=== PATIENT | female | born 1955 | race Caucasian/White ===

== ENCOUNTER → 2019-11-09 12:40 | Outpatient (BNVA) | payer MEDICARE, OTHER, SELFPAY | PROVIDERS: Family Provider Family Medicine; PCP Family Medicine; Visit Provider Family Medicine | DX: A60.09 Herpesviral infection of other urogenital tract (principal); E03.9 Hypothyroidism, unspecified; N95.1 Menopausal and female climacteric states; J45.909 Unspecified asthma, uncomplicated; K21.9 Gastro-esophageal reflux disease without esophagitis; R39.9 Unspecified symptoms and signs involving the genitourinary system; M79.671 Pain in right foot | CPT/HCPCS: 81003; 87086 ==

== ENCOUNTER 2019-11-16 13:29 | Outpatient (CLI) | payer MEDICARE, OTHER, SELFPAY ==
--- NOTE | 2019-11-16 13:41 | XR_ITS ---
WS: [id number] XR foot RT min 3V* [id number] REASON FOR EXAM: Right fourth toe pain FINDINGS: Fourth digit shows no definite fractures or dislocation. The metatarsals are normal. A prominent calcaneal spur is noted. The remaining foot appear to be essentially normal. XR/XR foot RT min 3V* [id number] IMPRESSION: Calcaneal spur No definite fractures of the foot particularly the fourth digit.
== END 2019-11-16 13:30 | disposition home or self-care (01) ==
LOC: RAD 13:36
PROVIDERS: Family Provider Family Medicine; PCP Family Medicine; Visit Provider Family Medicine
DX: M79.671 Pain in right foot (principal); N89.8 Other specified noninflammatory disorders of vagina
CPT/HCPCS: 73630; 87070

== ENCOUNTER → 2020-02-28 14:10 | Outpatient (BNVA) | payer MEDICARE, OTHER, SELFPAY | PROVIDERS: Family Provider Family Medicine; PCP Family Medicine; Visit Provider Family Medicine | DX: E03.9 Hypothyroidism, unspecified (principal); R53.83 Other fatigue; R00.2 Palpitations | CPT/HCPCS: 80053; 84443; 85025 ==

== ENCOUNTER 2020-05-04 13:53 | Outpatient (CLI) | payer MEDICARE, OTHER, SELFPAY ==
--- NOTE | 2020-05-04 13:56 | USCV_ITS ---
Magdalena East Age: 64 Gender: F : 1955 Exam Date: 05/04/2020 14:20 Ordering Phys: Jessi Frausto DO Technologist: Delaney Cox Exam Location: [facility] Indication: PATHAK BP: 133 / 67 HR: 106 Rhythm: Sinus Technical Quality: Good MEASUREMENTS (Male / Female) Normal Values 2D ECHO LV Diastolic Diameter PLAX 4.1 cm 4.2 - 5.9 / 3.9 - 5.3 cm LV Systolic Diameter PLAX 2.9 cm IVS Diastolic Thickness 0.6 cm 0.6 - 1.0 / 0.6 - 0.9 cm IVS Systolic Thickness 1.2 cm LVPW Diastolic Thickness 0.8 cm 0.6 - 1.0 / 0.6 - 0.9 cm LVPW Systolic Thickness 1.4 cm LVOT Diameter 2.0 cm LV Ejection Fraction 2D Teich 58.4 % LV Ejection Fraction MOD 2C 76.2 % LV Ejection Fraction 2C AL 75.9 % LA Diameter 3.7 cm Aorta at Sinotubular Diameter 2.3 cm M-MODE LV Diastolic Diameter MM 5.1 cm 4.2 - 5.9 / 3.9 - 5.3 cm LV Systolic Diameter MM 3.7 cm LV Ejection Fraction MM Teich 54.8 % IVS Diastolic Thickness MM 0.6 cm 0.6 - 1.0 / 0.6 - 0.9 cm IVS Systolic Thickness MM 1.0 cm LVPW Diastolic Thickness MM 0.7 cm 0.6 - 1.0 / 0.6 - 0.9 cm LVPW Systolic Thickness MM 1.0 cm Aortic Annulus Diameter 2.5 cm LA Ao Ratio MM 1.5 MV E Point Septal Separation 0.9 cm DOPPLER AV Peak Velocity 196.0 cm/s LVOT Peak Velocity 146.0 cm/s AV Area Cont Eq vti 2.6 cm squared AV Area Cont Eq pk 2.3 cm squared MV Area PHT 2.9 cm squared Mitral E to A Ratio 0.9 MV E' Velocity 10.0 cm/s Mitral E to MV E' Ratio 11.8 Mitral E to LV E' Lateral Ratio 11.6 Mitral E to LV E' Septal Ratio 12.1 TR Peak Velocity 310.7 cm/s TR Peak Gradient 38.6 mmHg TR Mean Velocity 253.3 cm/s TR Mean Gradient 27.4 mmHg TR Velocity Time Integral 93.9 cm TV Peak E Velocity 66.0 cm/s Right Atrial Pressure 3.0 mmHg Pulmonary Artery Systolic Pressu 41.6 mmHg PV Peak Velocity 94.0 cm/s FINDINGS Left Ventricle Normal left ventricular size, systolic function and wall thickness, with no regional wall motion abnormalities. LVEF is 55 to 60%. Normal left ventricular wall thickness. Diastolic dysfunction is noted. Right Ventricle The right ventricle is normal in size and function. Right Atrium The right atrium is normal in size. Left Atrium The left atrium is normal in size. Mitral Valve Structurally normal mitral valve without significant stenosis or prolapse. There is no mitral regurgitation. Aortic Valve Structurally normal aortic valve without significant sclerosis or stenosis. There is no aortic regurgitation. Tricuspid Valve Structurally normal tricuspid valve without significant stenosis or regurgitation. Insufficient TR jet to calculate RVSP. Pulmonic Valve Structurally normal pulmonic valve without significant stenosis. There is no pulmonic regurgitation. Pericardium Normal pericardium without effusion. Aorta Normal ascending aorta dimension. CONCLUSIONS Normal LV function with EF of 55 to 60%. Diastolic dysfunction is noted. Clifton Zuniga MD (Electronically Signed) Final Date: 04 May 2020 17:30 S
--- NOTE | 2020-05-04 15:10 | XR_ITS ---
WS: [id number] SCREENING DEXA SCAN [facility] CLINICAL INFORMATION: post-menopausal COMPARISON: None. FINDINGS: The L1-L4 bone mineral density measures 1.038 g/cm2. This corresponds to a T score score of -1.2 and Z score of 0.1. Left femoral neck bone mineral density measures 0.825 g/cm2. This corresponds to a T score of -1.4 an d Z score of -0.4. Right femoral neck bone mineral density measures 0.838 g/cm2. This corresponds to a T score -1.4of an d Z score of -0.3. Mean femoral neck bone mineral density measures 0.831 g/cm2. This corresponds to a T score of -1.4 an d Z score of -0.4. XR/XR DEXA axial skeleton* [id number] IMPRESSION: Osteopenia Patient's FRAX calculated 10 year probability for major osteoporotic fracture i s 18.3 % and osteoporotic hip fracture is 3.1%.
== END 2020-05-04 13:54 | disposition home or self-care (01) ==
LOC: US 13:54
PROVIDERS: Family Provider Family Medicine; PCP Family Medicine; Visit Provider Family Medicine
DX: Z78.0 Asymptomatic menopausal state (principal); M85.88 Other specified disorders of bone density and structure, other site; R06.00 Dyspnea, unspecified
CPT/HCPCS: 77080; 93306

== ENCOUNTER 2020-05-16 10:59 | Outpatient (CLI) | payer MEDICARE, OTHER, SELFPAY ==
--- NOTE | 2020-05-16 11:30 | MM_ITS ---
WS: [id number] SCREENING DIGITAL MAMMOGRAM WITH CAD HISTORY: screening mammogram COMPARISON: 08/26/2018 and 06/20/2017 Bilateral CC and MLO views submitted. Computer aided detection analyzed. Breast composition: There are scattered areas of fibroglandular density. No suspicious masses, microc alcifications or architectural distortion. MM/[place] [id number] IMPRESSION: BI-RADS: 1-Negative FOLLOW UP: 1 Year Follow-up
== END 2020-05-16 11:00 | disposition home or self-care (01) ==
LOC: RADSHAW 11:04
PROVIDERS: PCP Family Medicine; Visit Provider Family Medicine
DX: Z12.31 Encounter for screening mammogram for malignant neoplasm of breast (principal)
CPT/HCPCS: 77067

== ENCOUNTER 2020-06-01 11:36 | Outpatient (CLI) | payer MEDICARE, OTHER, SELFPAY ==
[2020-06-01 12:29] LABS: Anion Gap 13.4 (5-19); Blood Urea Nitrogen 9 mg/dL (8-23); Calcium 9.4 mg/dL (8.5-10.5); Carbon Dioxide 28 mmol/L (22-29); Chloride 104 mmol/L (98-107); Glomerular Filtration Rate 83.7 mL/min (90-130); Glucose 99 mg/dL (65-115); NT Pro B Type Natriuretic Pept 78 pg/mL (0-125); Osmolality Calculated 288 mOsm/kg (285-295); Potassium 4.4 mmol/L (3.5-5.1); Sodium 141 mmol/L (136-145)
[2020-06-02 14:47] LABS: Immunoglobulin E 124 kU/L (<OR=114)
[2020-06-02 16:17] LABS: Cat Dander (E1) Ige 0.18 kU/L; Cat Dander Class 0/1; Common Ragweed (Short) (W1) Ig 0.73 kU/L; Dog Dander (E5) Ige 0.24 kU/L; Dog Dander Class 0/1; Elm (T8) Ige 0.59 kU/L; Elm Class 1; English Plantain (W9) Ige 0.36 kU/L; English Plantain Class 1; Immunoglobulin E 120 kU/L (<OR=114); Lamb'S Quarters (Goose Foot) 0.27 kU/L; Lamb'S Quarters Class 0/1; Maple (Box Elder) (T1) Ige 0.28 kU/L; Maple Class 0/1; Oak (T7) Ige 0.43 kU/L; Oak Class 1; Ragweeed Class 2; Rough Marsh Elder Class 0/1
[2020-06-06 19:41] LABS: Aspergillus Fumigatus, Igg Ab, 16.9 mg/L (<=102)
[2020-06-08 17:52] LABS: Bermuda Class 1; Bermuda Grass (G2) Ige 0.51 kU/L; Johnson Grass (G10) Ige 0.42 kU/L; Johnson Grass Cl 1; June Grass Class 2; June Grass(Kentucky Blue) (G8) 1.84 kU/L; Meadow Fescue (G4) Ige 1.75 kU/L; Meadow Fescue Class 2; Orchard Grass (Cocksfoot) (G3) 1.53 kU/L; Perennial Rye Grass (G5) Ige 1.54 kU/L; Perennial Rye Grass Class 2; Sweet Vernal Class 2; Sweet Vernal Grass (G1) Ige 1.43 kU/L; Timothy Grass (G6) Ige 1.67 kU/L; Timothy Grass Class 2
[2020-06-12 17:13] LABS: Alternaria Class 2; D. Farinae Class 0/1; Dermatophagoides Class 0; Dermatophagoides Farinae (D2) 0.11 kU/L; Dermatophagoides Pteronyssinus <0.10 kU/L; House Dust (Greer) (H1) Ige 0.14 kU/L; House Dust (Hollister- Stier) 0.17 kU/L; House Dust Class 0/1; Mucor Racemosus Class 0/1; Penicillium Class 0/1
== END 2020-06-01 11:37 | disposition home or self-care (01) ==
PROVIDERS: Internal Medicine Cardiovascular Disease; PCP Family Medicine; Visit Provider Internal Medicine Critical Care Medicine
DX: R06.00 Dyspnea, unspecified (principal); J45.909 Unspecified asthma, uncomplicated; R06.02 Shortness of breath
CPT/HCPCS: 80048; 82785; 83735; 83880; 86003

== ENCOUNTER → 2020-07-03 15:17 | Outpatient (BNVA) | payer MEDICARE, OTHER, SELFPAY | PROVIDERS: PCP Family Medicine; Visit Provider Nurse Practitioner Family | DX: Z11.59 Encounter for screening for other viral diseases (principal); Z20.828 Contact with and (suspected) exposure to other viral communicable diseases; J06.9 Acute upper respiratory infection, unspecified | CPT/HCPCS: 87635 ==

== ENCOUNTER → 2020-07-29 11:19 | Outpatient (BNVA) | payer MEDICARE, OTHER, SELFPAY | PROVIDERS: PCP Family Medicine; Visit Provider Nurse Practitioner Family | DX: Z20.828 Contact with and (suspected) exposure to other viral communicable diseases (principal); J11.1 Influenza due to unidentified influenza virus with other respiratory manifestations; J45.909 Unspecified asthma, uncomplicated | CPT/HCPCS: 87400; 87635 ==

== ENCOUNTER 2020-09-25 06:46 | Outpatient (CLI) | payer MEDICARE, OTHER, SELFPAY ==
[2020-09-25 07:09] VITALS: BMI 29.3
--- NOTE | 2020-09-25 07:10 | ECG_ITS ---
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 Interpretive Statements NAME OF STUDY: EXERCISE SESTAMIBI STRESS TEST INDICATION: Fatigue, shortness of breath Baseline blood pressure of 133/75 mm Hg, heart rate 80 beats per minute and oxygen saturation 95%. EKG showed normal sinus rhythm, left axis deviation with incomplete right bundle branch block. Poor anterior R wave progression. The patient exercised for 5 minutes on a standard [place] protocol. Patient attained a maximum heart rate of 154 beats per minute(96% of the maximum predicted heart rate) with a blood pressure at the peak exercise of 164/84 mm Hg and oxygen saturation 98%. The EKG at the peak exercise revealed sinus tachycardia with upsloping [address] depression in inferolateral leads. Patient did not have any chest pain or any significant arrhythmis with the exercise During the recovery phase, there were no new changes. Blood pressure at the end of the recovery phase was 119/83 mm Hg with a heart rate of 91 beats per minute oxygen saturation 98%. CONCLUSION: 1. Equivocal EKG response to treadmill exercise. 2. No exercise-induced chest pain or cardiac arrhythmia 3. Fair exercise tolerance, attained a maximum of 7 METs. Maximum VO2 of 24.5 mL/kg/min. 4. Baseline normal blood pressure with normal response to exercise. 5. Perfusion scan will be documented separately. Electronically Signed On 09-26-2020 10:20:25 GOLF BALL WINDER by Loren Miguel M.D. [id number]
--- NOTE | 2020-09-25 07:10 | NMCV_ITS ---
NM javon perf SPECT r/s* [id number] Magdalena East Age: 64 Gender: F : 1955 Exam Date: 09/25/2020 07:10 Ordering Phys: Jessi Frausto DO Technologist: MEKHI Red Exam Location: [facility] Indications: DYSPNEA ON EXERTION, FATIQUE STRESS TEST Please see separate stress [facility] for full findings IMAGE PROTOCOL Rest/Stress 1 Exercise Day Radiopharmaceutical Dose (mCi) Administration Site Administered by Rest: Tc-99m 10.8 IV MEKHI Arreguin Sestamibi Stress:Tc-99m 32.7 IV Sestamibi Rest: 25-Sep-2020 60 Discovery 630 Stress: 25-Sep-2020 15 Discovery 630 Radiopharmaceutical was injected at 90 % maximum heart rate. Images obtained in supine and prone position. SPECT RESULTS Technical Quality: Excellent Raw Data Analysis: Normal Image Corrections: No attenuation or motion correction applied Summed Stress Score: 0 Summed Rest Score: 0 Summed Difference Score: 0 PERFUSION FINDINGS SPECT images demonstrate homogeneous tracer distribution throughout the myocardium. FUNCTIONAL RESULTS (calculated via Gated SPECT) Stress Image LV EF (%): 82 Stress EDV (mL):55 TID: 0.76 Stress ESV (mL):10 FUNCTIONAL FINDINGS: The left ventricle is normal in size. Transient Ischemia Dilatation of 0.76. There is normal left ventricular systolic function. The left ventricular ejection fraction is normal with a value of 82%. There is no regional wall motion abnormality. There is hyperdynamic left ventricular wall thickening. IMPRESSIONS 1. Myocardial perfusion imaging is normal. 2. Overall left ventricular systolic function is normal without regional wall motion abnormalities. 3. The left ventricular ejection fraction is normal with a value of 82%. 4. Scan indicates low risk for cardiac events. Loren Miguel MD (Electronically Signed) Final Date: 25 September 2020 14:33 S
[2020-09-25 10:43] VITALS: BP 119/83; PULSE 90
== END 2020-09-25 06:47 | disposition home or self-care (01) ==
PROVIDERS: PCP Family Medicine; Visit Provider Family Medicine
DX: R06.00 Dyspnea, unspecified (principal); R53.83 Other fatigue
CPT/HCPCS: 78452; 93017; A9500

== ENCOUNTER → 2020-10-10 11:20 | Outpatient (BNVA) | payer MEDICARE, SELFPAY | PROVIDERS: PCP Family Medicine; Visit Provider Family Medicine | DX: E03.9 Hypothyroidism, unspecified (principal) | CPT/HCPCS: 84443 ==

== ENCOUNTER → 2020-10-26 09:25 | Outpatient (BNVA) | payer MEDICARE, SELFPAY | PROVIDERS: PCP Family Medicine; Visit Provider Nurse Practitioner Family | DX: R53.83 Other fatigue (principal); M25.50 Pain in unspecified joint; B35.0 Tinea barbae and tinea capitis; B37.0 Candidal stomatitis; Z79.899 Other long term (current) drug therapy | CPT/HCPCS: 82306; 82607; 83550; 85007; 85027 ==

== ENCOUNTER → 2020-11-23 14:29 | Outpatient (BNVA) | payer MEDICARE, SELFPAY | PROVIDERS: PCP Family Medicine; Visit Provider Family Medicine | DX: N95.1 Menopausal and female climacteric states (principal); A60.09 Herpesviral infection of other urogenital tract; K21.9 Gastro-esophageal reflux disease without esophagitis; R53.83 Other fatigue; E03.9 Hypothyroidism, unspecified; L65.9 Nonscarring hair loss, unspecified; J45.21 Mild intermittent asthma with (acute) exacerbation; I10 Essential (primary) hypertension; M25.59 Pain in other specified joint; Z13.220 Encounter for screening for lipoid disorders; Z13.6 Encounter for screening for cardiovascular disorders; R87.610 Atypical squamous cells of undetermined significance on cytologic smear of cervix (ASC-US) | CPT/HCPCS: 80053; 84439; 84481; 85651; 86038; 86140 ==

== ENCOUNTER → 2020-12-05 08:27 | Outpatient (BNVA) | payer MEDICARE, SELFPAY | PROVIDERS: PCP Family Medicine; Visit Provider Nurse Practitioner Family | DX: R30.0 Dysuria (principal); K52.9 Noninfective gastroenteritis and colitis, unspecified | CPT/HCPCS: 81000 ==

== ENCOUNTER → 2020-12-07 14:02 | Outpatient (BNVA) | payer MEDICARE, SELFPAY | PROVIDERS: PCP Family Medicine; Visit Provider Family Medicine | DX: R87.610 Atypical squamous cells of undetermined significance on cytologic smear of cervix (ASC-US) (principal); R87.810 Cervical high risk human papillomavirus (HPV) DNA test positive; R30.0 Dysuria; B35.0 Tinea barbae and tinea capitis; R53.83 Other fatigue; M54.9 Dorsalgia, unspecified; A09 Infectious gastroenteritis and colitis, unspecified; Z12.4 Encounter for screening for malignant neoplasm of cervix | CPT/HCPCS: 81000; 87086; 88175 ==

== ENCOUNTER → 2020-12-08 08:38 | Outpatient (BNVA) | payer MEDICARE, SELFPAY | PROVIDERS: PCP Family Medicine; Visit Provider Nurse Practitioner Family | DX: R10.9 Unspecified abdominal pain (principal); R19.7 Diarrhea, unspecified | CPT/HCPCS: 87506 ==

== ENCOUNTER → 2020-12-18 10:34 | Outpatient (BNVA) | payer MEDICARE, SELFPAY | PROVIDERS: PCP Family Medicine; Visit Provider Nurse Practitioner Family | DX: R87.610 Atypical squamous cells of undetermined significance on cytologic smear of cervix (ASC-US) (principal); R87.810 Cervical high risk human papillomavirus (HPV) DNA test positive; R19.7 Diarrhea, unspecified | CPT/HCPCS: 87177; 87209; 87338; 87506 ==

== ENCOUNTER → 2021-01-22 08:41 | Outpatient (BNVA) | payer MEDICARE, SELFPAY | PROVIDERS: PCP Family Medicine; Visit Provider Internal Medicine Rheumatology | DX: M25.551 Pain in right hip (principal); M25.552 Pain in left hip; M17.0 Bilateral primary osteoarthritis of knee; R76.8 Other specified abnormal immunological findings in serum; Z79.899 Other long term (current) drug therapy; R53.83 Other fatigue; Z86.16 Personal history of COVID-19 | CPT/HCPCS: 99204 ==

== ENCOUNTER 2021-01-31 10:24 | Outpatient (CLI) | payer MEDICARE, SELFPAY ==
--- NOTE | 2021-01-31 10:33 | XR_ITS ---
WS: [id number] Right knee, 3 views, 01/31/2021 Clinical Data: Z79.899 - Other care home (current) drug therapy Comparison: None. Findings: No fractures or dislocations are seen. The joint spaces are normal. The patella is intact. The soft t issues are unremarkable. XR/XR knee RT 3V* [id number] Impression: Negative right knee.
--- NOTE | 2021-01-31 10:33 | XR_ITS ---
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 Findings: No fractures or dislocations are seen. The SI joints and pubic symphysis are intact. The soft tissues are not remarkable. The hips are not remarkable. There are midline lower abdominal sutures. XR/XR pelvis 1-2V* [id number] Impression: Negative pelvis and hips.
--- NOTE | 2021-01-31 10:33 | XR_ITS ---
WS: [id number] Chest 2 views, 01/31/2021 Clinical Data: Z79.899 - Other intermediate card tender (current) drug therapy Comparison: Portable chest, 11/03/2016. Findings: No nodules, masses or effusions are seen. The heart is normal. The pulmonary vascularity is not increased. No pneumonia or pneumothorax is seen. The aortic arch and descending aorta show minim al tortuosity. The diaphragms are flattened. XR/XR chest 2V* [id number] Impression: Atherosclerosis and hyperinflation.
--- NOTE | 2021-01-31 10:33 | XR_ITS ---
WS: [id number] Left knee, 3 views, 01/31/2021 Clinical Data: Z79.899 - Other manager long term care (current) drug therapy Comparison: None. Findings: No fractures or dislocations are seen. The joint spaces are normal. The patella is intact. The soft t issues are unremarkable. There is a small osteochondroma of the junction of the metaphysis and diaphysis of the proximal media l left tibia. XR/XR knee LT 3V* [id number] Impression: Negative left knee.
[2021-01-31 12:23] LABS: Basophils # 0.1 10^3/uL (0.0-0.1); Basophils % 0.8 %; Eosinophils # 0.2 10^3/uL (0.0-0.8); Eosinophils % 1.5 %; Hemoglobin 15.6 g/dL (11.5-15.3); Lymphocytes # 2.4 10^3/uL (0.8-4.8); Lymphocytes % 24.3 %; Mean Corpuscular HGB Conc 33.9 g/dL (30.0-36.0); Mean Corpuscular Hemoglobin 32.2 pg (28.0-34.0); Mean Platelet Volume 10.7 fL (7.4-10.4); Monocytes # 0.9 10^3/uL (0.2-0.9); Monocytes % 8.5 %; Neutrophils # 6.41 10^3/uL (1.8-7.7); Neutrophils % 64.1 %; Nucleated Red Blood Cells % 0 %; Platelet Count 268 10^3/cmm (130-400); Red Blood Count 4.84 10^6/uL (4.1-5.3); Red Cell Distribution Width 11.8 % (12.1-15.1)
[2021-01-31 12:35] LABS: Bilirubin Urine Neg (Negative); Blood Urine Neg (Negative); Glucose Urine UA Norm (Normal); Ketones Urine Negative (Negative); Leukocyte Esterase Urine Negative (Negative); Nitrate Urine Negative (Negative); Protein Urine Neg (Negative); Specific Gravity, Urine 1.025 (1.005-1.030); Urine Appearance Clear (CLEAR); Urine Color Yellow (Yellow); Urobilinogen Urine Norm (Negative); pH Urine 6.5 (5-7)
[2021-01-31 12:41] LABS: Add Urine Culture? No; Bacteria Urine TRACE /hpf; Squamous Epithelial Cell Urine 0-4 /hpf (0-5)
[2021-01-31 12:47] LABS: 25 Hydroxy Vitamin D 60 ng/mL (30-100); Alanine Aminotransferase 19 U/L (0-33); Albumin Level 4.1 g/dL (3.5-5.2); Alkaline Phosphatase 64 IU/L (35-105); Aspartate Amino Transferase 16 U/L (0-32); C Reactive Protein 0.5 mg/L (0.0-4.9); Globulin 2.8 g/dL (1.3-4.6); Glomerular Filtration Rate 123.1 mL/min (90-130); Total Bilirubin 0.4 mg/dL (0.15-1.2); Total Protein 6.9 g/dL (6.6-8.7)
[2021-01-31 12:48] LABS: Urine Creatinine 46 mg/dL (28-217); Urine Protein Random 7 mg/dL
[2021-01-31 15:15] LABS: Erythrocyte Sedimentation Rate > 120 mm/hr (0-15)
[2021-02-01 11:02] LABS: COMPLEMENT COMPONENT C3C 150 mg/dL (83-193); COMPLEMENT COMPONENT C4C 31 mg/dL (15-57)
[2021-02-01 13:17] LABS: Cyclic Citrullinated Peptide <16 UNITS
[2021-02-02 11:13] LABS: COMPLEMENT, TOTAL (CH50) >60 U/mL (31-60)
[2021-02-05 13:13] LABS: CENTROMERE B ANTIBODY <1.0 NEG AI (<1.0 NEG); JO-1 ANTIBODY <1.0 NEG AI (<1.0 NEG); RNP ANTIBODY <1.0 NEG AI (<1.0 NEG); SCL-70 ANTIBODY <1.0 NEG AI (<1.0 NEG); SJOGREN'S ANTIBODY (SS-A) <1.0 NEG AI (<1.0 NEG); SM ANTIBODY <1.0 NEG AI (<1.0 NEG); SS-B <1.0 NEG AI (<1.0 NEG)
[2021-02-05 14:52] LABS: THYROID PEROXIDASE ANTIBODIES 42 IU/mL (<9)
[2021-02-06 13:47] LABS: ANA SCREEN, IFA POSITIVE (NEGATIVE); ANA TITER 1:40 titer; Anti-Nuclear AB Pattern #2 Nuclear, Homogeneous
[2021-02-08 01:37] LABS: DNA AB (DS) CRITHIDIA,IFA NEGATIVE (NEGATIVE)
== END 2021-01-31 10:25 | disposition home or self-care (01) ==
PROVIDERS: PCP Family Medicine; Visit Provider Internal Medicine Rheumatology
DX: M19.90 Unspecified osteoarthritis, unspecified site (principal); R76.8 Other specified abnormal immunological findings in serum; Z79.899 Other long term (current) drug therapy
CPT/HCPCS: 36415; 71046; 72170; 73562; 80076; 81001; 82306; 82565; 82570; 84156; 85025; 85651; 86140; 86160; 86162; 86235; 86255; 86376; 86431

== ENCOUNTER → 2021-02-12 08:56 | Outpatient (BNVA) | payer MEDICARE, SELFPAY | PROVIDERS: PCP Family Medicine; Visit Provider Internal Medicine Rheumatology | DX: R70.0 Elevated erythrocyte sedimentation rate (principal); Z79.899 Other long term (current) drug therapy; R76.8 Other specified abnormal immunological findings in serum | CPT/HCPCS: 85651; 86140 ==

== ENCOUNTER → 2021-02-19 14:12 | Outpatient (BNVA) | payer MEDICARE, SELFPAY | PROVIDERS: PCP Family Medicine; Visit Provider Internal Medicine Rheumatology | DX: M17.0 Bilateral primary osteoarthritis of knee (principal); R76.8 Other specified abnormal immunological findings in serum; Z86.16 Personal history of COVID-19 | CPT/HCPCS: 99213 ==

== ENCOUNTER → 2021-04-12 15:26 | Outpatient (BNVA) | payer MEDICARE, SELFPAY | PROVIDERS: PCP Family Medicine; Visit Provider Family Medicine | DX: F48.8 Other specified nonpsychotic mental disorders (principal); M79.7 Fibromyalgia; E03.9 Hypothyroidism, unspecified; R53.83 Other fatigue | CPT/HCPCS: 84439; 84443; 84481 ==

== ENCOUNTER → 2021-10-04 14:34 | Outpatient (BNVA) | payer MEDICARE, SELFPAY | PROVIDERS: PCP Family Medicine; Visit Provider Family Medicine | DX: R35.0 Frequency of micturition (principal); E03.9 Hypothyroidism, unspecified; J45.21 Mild intermittent asthma with (acute) exacerbation; I10 Essential (primary) hypertension | CPT/HCPCS: 80053; 80061; 81000; 84443 ==

== ENCOUNTER → 2021-12-17 11:23 | Outpatient (BNVA) | payer MEDICARE, SELFPAY | PROVIDERS: PCP Family Medicine; Visit Provider Internal Medicine Critical Care Medicine | DX: J30.1 Allergic rhinitis due to pollen (principal); J45.50 Severe persistent asthma, uncomplicated; I10 Essential (primary) hypertension | CPT/HCPCS: 99214 ==

== ENCOUNTER → 2022-02-18 10:43 | Outpatient (BNVA) | payer MEDICARE, SELFPAY | PROVIDERS: PCP Family Medicine; Visit Provider Internal Medicine Critical Care Medicine | DX: N94.9 Unspecified condition associated with female genital organs and menstrual cycle (principal); N76.0 Acute vaginitis; J45.50 Severe persistent asthma, uncomplicated; J30.1 Allergic rhinitis due to pollen; Z86.16 Personal history of COVID-19; I10 Essential (primary) hypertension; K21.9 Gastro-esophageal reflux disease without esophagitis | CPT/HCPCS: 81000; 87070; 87205; 99214 ==

== ENCOUNTER 2022-03-03 05:04 | Emergency (ER) | payer MEDICARE, SELFPAY ==
[2022-03-03 05:04] VITALS: BP 148/72; PULSE 70; RESP 18; TEMP 36.6; O2SAT 98; BMI 29.2
--- NOTE | 2022-03-03 05:20 | CTR_ITS ---
PROCEDURE INFORMATION: Exam: CT Head Without Contrast Exam date and time: 03/03/2022 6:17 AM Age: 66 years old Clinical indication: Dizziness TECHNIQUE: Imaging protocol: Computed tomography of the head without contrast. Radiation optimization: All CT scans at this facility use at least one of these dose optimization techniques: automated exposure control; mA and/or kV adjustment per patient size (includes targeted exams where dose is matched to clinical indication); or iterative reconstruction. COMPARISON: No relevant prior studies available. RADIATION DOSE METRICS: Total DLP (mGy-cm): 733.5 FINDINGS: Brain: Symmetric prominence of the cortical and cerebellar sulci. No acute cortical infarct, mass effect, or intracranial hemorrhage. Minimal small vessel ischemic change. Cerebral ventricles: Normal configuration of the ventricles. Paranasal sinuses: Trace sphenoid sinus fluid. Mastoid air cells: No mastoid effusion. Bones/joints: No acute calvarial pathology. Soft tissues: Unremarkable soft tissues. CT/CT head wo con* [id number] IMPRESSION: No acute intracranial pathology.
--- NOTE | 2022-03-03 05:22 | ECG_ITS ---
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 Measurements Intervals [place] Rate: 67 P: 67 [place]: 157 QRS: 2 QRSD: 96 T: 46 QT: 384 QTc: 407 Interpretive Statements SINUS RHYTHM POSSIBLE LEFT ATRIAL ENLARGEMENT [-0.1mV P-WAVE IN V1/V2] POSSIBLE RIGHT VENTRICULAR CONDUCTION DELAY [RSR (QR) IN V1/V2] INTERPRETATION BASED ON A DEFAULT AGE OF 40 YEARS Compared to ECG 11/03/2016 15:19:30 No significant changes Electronically Signed On 03-03-2022 9:23:21 CDT by Dae Curtis M.D. [id number]
[2022-03-03 05:29] LABS: Basophils # 0.1 10^3/uL (0.0-0.1); Basophils % 0.9 %; Eosinophils # 0.4 10^3/uL (0.0-0.8); Eosinophils % 5.3 %; Hemoglobin 14.6 g/dL (11.5-15.3); Lymphocytes % 28.6 %; Mean Corpuscular HGB Conc 35.6 g/dL (30.0-36.0); Mean Corpuscular Hemoglobin 32.6 pg (28.0-34.0); Mean Corpuscular Volume 91.5 fl (81-99); Mean Platelet Volume 10.4 fL (7.4-10.4); Monocytes # 0.8 10^3/uL (0.2-0.9); Monocytes % 11.2 %; Neutrophils # 3.68 10^3/uL (1.8-7.7); Neutrophils % 53.7 %; Nucleated Red Blood Cells % 0 %; Platelet Count 247 10^3/cmm (130-400); Red Blood Count 4.48 10^6/uL (4.1-5.3); Red Cell Distribution Width 11.4 % (12.1-15.1); White Blood Count 6.9 10^3/uL (4.0-10.0)
[2022-03-03 05:41] LABS: INR 1.02 (0.8-1.2)
[2022-03-03 05:42] LABS: Partial Thromboplastin Time 29.9 SECONDS (23.9-36.7)
[2022-03-03] MEDS: meclizine 25 mg tablet PO (05:43)
[2022-03-03] MEDS: ondansetron 2 mg/ML SDV 2 mL 4 MG IVP (05:43)
[2022-03-03] MEDS: LORazepam 2 mg/mL INJ 1 mL 0.5 MG IVP (05:44)
[2022-03-03] MEDS: sodium chloride 0.9% 1,000 ML 999 ML IV (05:44)
[2022-03-03 05:49] LABS: Alanine Aminotransferase 23 U/L (0-33); Albumin Level 4.3 g/dL (3.5-5.2); Alkaline Phosphatase 67 IU/L (35-105); Anion Gap 13.7 (5-19); Aspartate Amino Transferase 27 U/L (0-32); Blood Urea Nitrogen 9 mg/dL (8-23); Calcium 9.6 mg/dL (8.5-10.5); Carbon Dioxide 27 mmol/L (22-29); Chloride 100 mmol/L (98-107); Glomerular Filtration Rate 122.7 mL/min (90-130); Glucose 103 mg/dL (65-115); Magnesium 2.1 mg/dL (1.7-2.3); Osmolality Calculated 283 mOsm/kg (285-295); Potassium 3.7 mmol/L (3.5-5.1); Sodium 137 mmol/L (136-145); Total Bilirubin 0.3 mg/dL (0.15-1.2); Total Protein 7.3 g/dL (6.6-8.7)
[2022-03-03 05:57] LABS: Add Urine Microscopic? NO; Charge for UA Resulting for Rev
[2022-03-03 05:59] LABS: Bilirubin Urine Neg (Negative); Blood Urine Neg (Negative); Glucose Urine UA Norm (Normal); Ketones Urine Negative (Negative); Leukocyte Esterase Urine Negative (Negative); Nitrate Urine Negative (Negative); Protein Urine Neg (Negative); Specific Gravity, Urine 1.005 (1.005-1.030); Urine Appearance Clear (CLEAR); Urine Color Yellow (Yellow); Urobilinogen Urine Norm (Negative); pH Urine 6 (5-7)
--- NOTE | 2022-03-03 06:26 | W.ED.DIZZY ---
HPI - Dizziness General: Chief Complaint: Dizziness Stated Complaint: dizziness, nausea Time Seen by Provider: 03/03/22 05:16 Source: patient History of Present Illness: HPI Narrative: 66-year-old female who for the past 24 hours has been progressively dizzy. The dizziness is a room spinning/off-balance kind of dizziness. She notes this mainly with movement or turning of her head. It seems to be worse with turning to the left. If she is sitting or lying still, she is not dizzy essentially. She has not vomited, but has been quite nauseated with movement and worsening dizziness. She denies significant headache. She denies any significant vision changes, weakness, trouble with language, or etc. her only other complaint is that she has noticed worsening of her allergies lately. MD elicited complaint: dizziness, difficulty walking and vertigo Pertinent past history: other Onset (ago): hour(s) (24) Timing: gradual onset Severity: moderate Description: sense of movement, room spinning and off-balance Context: change in body position History of similar symptoms: No Exacerbating factors: movement/ambulation and change in body position Relieving factors: remaining still Associated symptoms: Reports malaise, nausea and nasal congestion; Denies change in hearing, chest pain, chills, palpitations, short of breath, vomiting or weakness Associated neuro symptoms: Deny confusion, difficulty speaking, dysphagia, diplopia, extremity weakness, facial numbness, facial weakness, numbness in extremities or visual changes Review of Systems Const: Reports: malaise; Denies: fever(s) or chills Eyes: Denies: change in vision ENMT: Reports: nasal congestion; Denies: change in hearing Card: Denies: chest pain or palpitations GI: Reports: nausea; Denies: abdominal pain, vomiting or dysphagia Musc: Denies: neck pain Neuro: Denies: numbness in extremities or confusion PFSH ED PFSH: Medical History Asthma COVID-19 resolved Fatigue Fibromyalgia Genital herpes in women GERD (gastroesophageal reflux disease) 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 History of 2019 novel coronavirus disease (COVID-19) History of colon polyps (~2013) HTN (hypertension) Hypothyroidism Osteoarthritis of knees, bilateral Positive JACK (antinuclear antibody) Postmenopausal Seborrheic keratosis Surgical History H/O vaginal surgery History of appendectomy History of colonoscopy (~2013) History of laparoscopic appendectomy History of tubal ligation Status post tonsillectomy Family History Mother Stroke Family/Other Hyperlipidemia CAD (coronary artery disease) Hypertension Other Atrial fibrillation Social History Smoking and tobacco status: never smoked Second hand smoke exposure: No Alcohol intake: never Lives independently: Yes Household members: spouse Marital status: Number of children: 2 Number of grandchildren: 4 Current occupational status: employed History of recent travel: No Current gender identity: Female Marisabel/Evangelical: Pentecostalism Female Reproductive History: Para: 4 Physical Exam Const: GENERAL APPEARANCE: cooperative; not frail appearing HENMT: COMMON NORMALS: normocephalic, atraumatic and Normal external nose present HEAD & SCALP: normocephalic and atraumatic FACE & SINUS: normal facial exam and face symmetric NOSE: Normal external nose present Eye: COMMON NORMALS: Equal, round and reactive pupils present and EOMs intact bilaterally PUPIL: Yes Equal, round and reactive pupils present EOM: Yes Nystagmus present (4-5 beats) Neck/C-Spine: GENERAL: Yes trachea midline Chest: CHEST: Yes Symmetrical chest wall rise Resp: COMMON NORMALS: normal respiratory effort, No retractions, No use of accessory muscles and clear to auscultation bilaterally AUSCULTATION: clear to auscultation bilaterally Cardio: COMMON NORMALS: regular rate and regular rhythm RATE: regular rate RHYTHM: regular rhythm GI: COMMON NORMALS: Normal to inspection, nondistended, normoactive bowel sounds present Extremity: COMMON NORMALS: no pedal edema Neuro: MARIUSZ COMA SCALE: document GCS findings Mariusz coma scale eye opening: Spontaneous [place] coma scale verbal response: Orientated [place] coma scale motor response: Obey commands [place] coma scale total score: 15 CRANIAL NERVES: Yes CN normal except as noted and Yes vestibular testing Vestibular testing: Yes Nystagmus present (4-5 beats) Nystagmus type: with left lateral gaze COORDINATION/BALANCE: [id number]-[id number] test normal and hgyr-qi-[id number] test normal SPEECH: speech normal MOTOR EXAM: Pronator motor function not present COORDINATION: [id number] test normal and rlrk-gt-[id number] test normal Psych: COMMON NORMALS: mental status grossly normal Course Vital Signs: Vital signs: Vital Signs Temperature 98 F 03/03/22 05:04 Pulse Rate 70 03/03/22 05:04 Respiratory Rate 18 03/03/22 05:04 Blood Pressure 148/72 03/03/22 05:04 Pulse Oximetry 98 03/03/22 05:04 MDM - Dizziness Medical Decision Making NIH score 0. Nystagmus only on extreme left lateral gaze for a few beats then corrects. CT is negative. Symptoms have been present for 24 hours essentially. Other work-up including CBC and BMP is normal. Liver enzymes are normal. Urinalysis is negative. She is improved after medication. She will be allowed home on medication for vestibular neuronitis. Lab Data : 03/03/22 05:17 03/03/22 05:[address] 03/03/22 05:20 IMPRESSION: No acute intracranial pathology. Laboratory Results WBC 6.9 10^3/uL (4.0-10.0) 03/03/22 05:17 RBC 4.48 10^6/uL (4.1-5.3) 03/03/22 05:17 Hgb 14.6 g/dL (11.5-15.3) 03/03/22 05:17 Hct 41.0 % (37.0-47.0) 03/03/22 05:17 MCV 91.5 fl (81-99) 03/03/22 05:17 MCH 32.6 pg (28.0-34.0) 03/03/22 05:17 MCHC 35.6 g/dL (30.0-36.0) 03/03/22 05:17 RDW 11.4 % (12.1-15.1) L 03/03/22 05:17 Plt Count 247 10^3/cmm (130-400) 03/03/22 05:17 MPV 10.4 fL (7.4-10.4) 03/03/22 05:17 Neut % (Auto) 53.7 % 03/03/22 05:17 Lymph % (Auto) 28.6 % 03/03/22 05:17 [place] % (Auto) 11.2 % 03/03/22 05:17 Eos % (Auto) 5.3 % 03/03/22 05:17 Baso % (Auto) 0.9 % 03/03/22 05:17 Neut # (Auto) 3.68 10^3/uL (1.8-7.7) 03/03/22 05:17 Lymph # (Auto) 2.0 10^3/uL (0.8-4.8) 03/03/22 05:17 [place] # (Auto) 0.8 10^3/uL (0.2-0.9) 03/03/22 05:17 Eos # (Auto) 0.4 10^3/uL (0.0-0.8) 03/03/22 05:17 Baso # (Auto) 0.1 10^3/uL (0.0-0.1) 03/03/22 05:17 Nucleated RBC % (auto) 0 % 03/03/22 05:17 Nucleated RBCs # 0.0 /100WBC 03/03/22 05:17 PT 13.70 SECONDS (12.1-14.9) 03/03/22 05:17 INR 1.02 (0.8-1.2) 03/03/22 05:17 APTT 29.9 SECONDS (23.9-36.7) 03/03/22 05:17 Sodium 137 mmol/L (136-145) 03/03/22 05:17 Potassium 3.7 mmol/L (3.5-5.1) 03/03/22 05:17 Chloride 100 mmol/L (98-107) 03/03/22 05:17 Carbon Dioxide 27 mmol/L (22-29) 03/03/22 05:17 Anion Gap 13.7 (5-19) 03/03/22 05:17 BUN 9 mg/dL (8-23) 03/03/22 05:17 Creatinine 0.5 mg/dL (0.5-0.9) 03/03/22 05:17 GFR Calculation 122.7 mL/min (90-130) 03/03/22 05:17 Glucose 103 mg/dL (65-115) 03/03/22 05:17 Calculated Osmolality 283 mOsm/kg (285-295) L 03/03/22 05:17 Calcium 9.6 mg/dL (8.5-10.5) 03/03/22 05:17 Magnesium 2.1 mg/dL (1.7-2.3) 03/03/22 05:17 Total Bilirubin 0.3 mg/dL (0.15-1.2) 03/03/22 05:17 AST 27 U/L (0-32) 03/03/22 05:17 ALT 23 U/L (0-33) 03/03/22 05:17 Alkaline Phosphatase 67 IU/L (35-105) 03/03/22 05:17 C-Reactive Protein 3.0 mg/L (0.0-4.9) 03/03/22 05:17 Total Protein 7.3 g/dL (6.6-8.7) 03/03/22 05:17 Albumin 4.3 g/dL (3.5-5.2) 03/03/22 05:17 Globulin 3.0 g/dL (1.3-4.6) 03/03/22 05:17 Urine Color Yellow (Yellow) 03/03/22 05:41 Urine Appearance Clear (CLEAR) 03/03/22 05:41 Urine pH 6 (5-7) 03/03/22 05:41 Ur Specific [place] 1.005 (1.005-1.030) 03/03/22 05:41 Urine Protein Neg (Negative) 03/03/22 05:41 Urine Glucose (UA) Norm (Normal) 03/03/22 05:41 Urine Ketones Negative (Negative) 03/03/22 05:41 Urine Blood Neg (Negative) 03/03/22 05:41 Urine Nitrate Negative (Negative) 03/03/22 05:41 Urine Bilirubin Neg (Negative) 03/03/22 05:41 Urine Urobilinogen Norm mg/dL (Negative) 03/03/22 05:41 Ur Leukocyte Esterase Negative (Negative) 03/03/22 05:41 Discharge Plan Discharge Patient Disposition: Home Clinical Impression: Acute vestibular neuronitis Qualifiers: Laterality: left Qualified Code(s): H81.22 - Vestibular neuronitis, left ear Condition: Stable Prescriptions: New meclizine 25 mg tablet 25 mg PO TID PRN (Reason: dizziness) Qty: 30 0RF Ativan 0.5 mg tablet 0.5 mg PO TID PRN (Reason: dizziness or vertigo) Qty: 14 0RF No Action Nizoral A-D 1 % shampoo 1 applic topical Q3D Qty: 125 5RF lidocaine (PF) 20 mg/mL (2 %) solution 20 mg SUBCUT ONCE Qty: 5 0RF acyclovir 400 mg tablet 400 mg PO DAILY 90 Days Qty: 90 1RF albuterol sulfate 2.5 mg /3 mL (0.083 %) solution for nebulization 2.5 mg inhalation Q4H PRN (Reason: shortness of breath or wheezing) Qty: 180 5RF albuterol sulfate [Ventolin HFA] 90 mcg/actuation HFA aerosol inhaler 2 puff INHALATION QID PRN (Reason: SOB) 90 Days Qty: 25.5 5RF estradiol 0.5 mg tablet 0.5 mg PO DAILY 90 Days Qty: 90 1RF fluticasone propionate 50 mcg/actuation spray,suspension See Rx Instructions .ROUTE .COMPLEX Qty: 48 6RF Dose Instruction: SHAKE LIQUID AND USE 1 SPRAY IN EACH NOSTRIL TWICE DAILY Rx Instructions: SHAKE LIQUID AND USE 1 SPRAY IN EACH NOSTRIL TWICE DAILY levothyroxine 75 mcg tablet 75 mcg PO DAILY 90 Days Qty: 90 1RF medroxyprogesterone 2.5 mg tablet 2.5 mg PO DAILY 90 Days Qty: 90 1RF montelukast [Singulair] 10 mg tablet 10 mg PO DAILY Qty: 90 1RF bupropion HCl [Wellbutrin SR] 100 mg tablet sustained-release 12 hr 100 mg PO BID 90 Days Qty: 180 1RF Rx Instructions: 340B omeprazole 20 mg capsule,delayed release(DR/EC) 20 mg PO QDAY 90 Days Qty: 90 1RF Incruse Ellipta 62.5 mcg/actuation blister with device 1 inh inhalation DAILY Qty: 30 3RF epinephrine [EpiPen 2-Reji] 0.3 mg/0.3 mL auto-injector 0.3 mg IM Q15M PRN (Reason: anaphylaxis) Qty: 2 0RF Rx Instructions: until response hydrochlorothiazide 12.5 mg capsule See Rx Instructions .ROUTE .COMPLEX Qty: 90 3RF Dose Instruction: TAKE 1 CAPSULE BY MOUTH DAILY Rx Instructions: TAKE 1 CAPSULE BY MOUTH DAILY nystatin 100,000 unit/mL suspension See Rx Instructions .ROUTE .COMPLEX Qty: 150 2RF Dose Instruction: SWISH AND SWALLOW 5 ML BY MOUTH THREE TIMES DAILY FOR 10 DAYS Rx Instructions: SWISH AND SWALLOW 5 ML BY MOUTH THREE TIMES DAILY FOR 10 DAYS Advair HFA 230-21 mcg/actuation HFA aerosol inhaler 2 puff inhalation Q12H 30 Days Qty: 12 4RF Rx Instructions: administer with spacer tizanidine 4 mg tablet 4 mg PO Q8H PRN (Reason: muscle spasticity) 30 Days Qty: 90 2RF fluconazole [Diflucan] 150 mg tablet 150 mg PO Q3D Qty: 2 0RF cephalexin 250 mg capsule 250 mg PO Q8H 7 Days Qty: 21 0RF Discharge Orders: Discharge ED (Routine); Ordered 03/03/22 Ordered By: Yuan Copeland Referrals: Estee Morocho MD [Primary Care Provider] - 4-7 days Patient Instructions: Benign Paroxysmal Positional Vertigo (ED), Dizziness (ED) Activity Restrictions/Additional Instructions: Return for worsening dizziness despite treatment, trouble with language, vision, weakness, headache, any other new symptoms. Follow-up with your doctor. Medication as directed. Coding Level of Care Code ED Skin Care Technician for Teagan Whitman
== END 2022-03-03 07:43 | disposition home or self-care (01) ==
PROVIDERS: Emergency Provider Emergency Medicine; PCP Family Medicine
DX: H81.22 Vestibular neuronitis, left ear (principal); I10 Essential (primary) hypertension; E03.9 Hypothyroidism, unspecified
CPT/HCPCS: 70450; 80053; 81003; 83735; 85025; 85610; 85730; 86140; 93005; 96361; 96374; 96375; 99284; J2060; J2405; J7030; J8597

== ENCOUNTER → 2022-03-07 12:52 | Outpatient (BNVA) | payer MEDICARE, SELFPAY | PROVIDERS: PCP Family Medicine; Visit Provider Family Medicine | DX: N39.0 Urinary tract infection, site not specified (principal) | CPT/HCPCS: 81000 ==

== ENCOUNTER 2022-06-05 11:27 | Outpatient (CLI) | payer MEDICARE, SELFPAY ==
--- NOTE | 2022-06-05 12:12 | PFTS_ITS ---
Date of Study:06/05/22 Date of Dictation: MECHANICS: Forced vital capacity (FVC) is . Forced expiratory volume in one second (FEV1) is . FEV1/FVC is . FLOW VOLUME LOOP: . LUNG VOLUMES: Total lung capacity (TLC) is . Residual volume (RV) is . DIFFUSING CAPACITY FOR CARBON MONOXIDE: . INTERPRETATION: The pulmonary function tests are . mechanics and lung volumes. Gas exchange (DLCO) is . MTDD
== END 2022-06-05 11:28 | disposition home or self-care (01) ==
LOC: RT 11:37
PROVIDERS: PCP Family Medicine; Visit Provider Internal Medicine Critical Care Medicine
DX: J45.50 Severe persistent asthma, uncomplicated (principal)
CPT/HCPCS: 94060; 94726; 94729; J7611

== ENCOUNTER 2022-06-17 12:57 | Outpatient (CLI) | payer MEDICARE, SELFPAY ==
--- NOTE | 2022-06-17 13:03 | MM_ITS ---
WS: [email or web address] BILATERAL 3D TOMOSYNTHESIS DIGITAL SCREENING MAMMOGRAPHY WITH CAD CLINICAL INFORMATION: Z12.39 - Encounter for other screening for malignant neop... HISTORY: Screening mammogram. No current complaints. COMPARISON: May 16, 2020 TECHNIQUE: Bilateral CC and MLO views. FINDINGS: Scattered fibroglandular densities bilaterally. No suspicious focal mass, asymmetry, calcifications, or architectural distortion. No evidence of malignancy. Lucent centered calcification LEFT breast. A few incidental prostatic calcifications. MM/[place] [id number] IMPRESSION: BI-RADS: 2-Benign FOLLOW UP: 1 Year Follow-up Recommend return to annual screening mammography.
== END 2022-06-17 12:58 | disposition home or self-care (01) ==
LOC: RAD 12:59
PROVIDERS: PCP Family Medicine; Visit Provider Nurse Practitioner Family
DX: Z12.31 Encounter for screening mammogram for malignant neoplasm of breast (principal)
CPT/HCPCS: 77063; 77067

== ENCOUNTER → 2022-06-20 10:31 | Outpatient (BNVA) | payer MEDICARE, SELFPAY | PROVIDERS: PCP Family Medicine; Visit Provider Internal Medicine Critical Care Medicine | DX: J45.50 Severe persistent asthma, uncomplicated (principal); J30.1 Allergic rhinitis due to pollen; J82.83 Eosinophilic asthma | CPT/HCPCS: 99214 ==

== ENCOUNTER → 2022-08-26 11:41 | Outpatient (BNVA) | payer MEDICARE, SELFPAY | PROVIDERS: PCP Family Medicine; Visit Provider Family Medicine | DX: R53.83 Other fatigue (principal); E78.5 Hyperlipidemia, unspecified; E03.9 Hypothyroidism, unspecified; M79.7 Fibromyalgia | CPT/HCPCS: 80053; 82306; 82607; 84443; 85025 ==

== ENCOUNTER 2022-10-14 11:42 | Outpatient (RCR) | payer MEDICARE, SELFPAY | END 2022-10-29 23:59 | disposition home or self-care (01) | LOC: SPT 11:42 | PROVIDERS: PCP Family Medicine; Visit Provider Family Medicine | DX: M54.50 Low back pain, unspecified (principal) | CPT/HCPCS: 97161 ==

== ENCOUNTER → 2022-10-21 10:34 | Outpatient (BNVA) | payer MEDICARE, SELFPAY | PROVIDERS: PCP Family Medicine; Visit Provider Family Medicine | DX: E03.9 Hypothyroidism, unspecified (principal); R53.83 Other fatigue; Z78.0 Asymptomatic menopausal state | CPT/HCPCS: 80053 ==

== ENCOUNTER 2022-11-25 15:00 | Outpatient (CLI) | payer MEDICARE, SELFPAY ==
--- NOTE | 2022-11-25 15:23 | XR_ITS ---
WS: [email or web address] Cervical spine, 4 views, 11/25/2022 Clinical Data: right sided pain Comparison: None. Findings: No compression fractures are seen. There is degenerative disc narrowing at C5-C6 and C6-C7 with osteophytes C4-C7. There is no prevertebral soft tissue swelling. The odontoid is unremarkable. The soft tissues of the neck and the lung apices are normal. XR/XR cervical spine 3V* [id number] Impression: Degenerative disc narrowing at C5-C6 and C6-C7 with accompanying osteophytes C4 -C7.
== END 2022-11-25 15:01 | disposition home or self-care (01) ==
PROVIDERS: PCP Family Medicine; Visit Provider Family Medicine
DX: R51.9 Headache, unspecified (principal); R20.0 Anesthesia of skin; M48.02 Spinal stenosis, cervical region; M25.78 Osteophyte, vertebrae
CPT/HCPCS: 72040

== ENCOUNTER → 2023-01-09 10:25 | Outpatient (BNVA) | payer MEDICARE, SELFPAY | PROVIDERS: PCP Family Medicine; Visit Provider Family Medicine | DX: R53.83 Other fatigue (principal); E78.5 Hyperlipidemia, unspecified; M79.7 Fibromyalgia | CPT/HCPCS: 80053; 82306; 82607; 83735; 84443; 85025 ==

== ENCOUNTER → 2023-01-30 11:11 | Outpatient (BNVA) | payer MEDICARE, SELFPAY | PROVIDERS: PCP Family Medicine; Visit Provider Orthopaedic Surgery | DX: M54.2 Cervicalgia (principal); R20.0 Anesthesia of skin | CPT/HCPCS: 72050; 99204 ==

== ENCOUNTER 2023-02-17 14:29 | Outpatient (CLI) | payer MEDICARE, SELFPAY ==
--- NOTE | 2023-02-17 15:00 | CT_ITS ---
WS: [email or web address] CT CERVICAL SPINE TECHNIQUE: Noncontrast CT of the cervical spine with coronal and sagittal reformatted images. CLINICAL INFORMATION: pain COMPARISON: None. DLP: 168.[address] scans at [facility] use at least one of these dose optimization techniques: automated e xposure control; mA and/or kV adjustment per patient size (includes targeted exams where dose is matc hed to clinical indication); or iterative reconstruction. FINDINGS: Straightening of the normal cervical lordosis. Slight anterolisthesis C2 on C3. Slight anterolisthesi s C4 on C5. Disc space narrowing worse at C5-C6 and C6-C7. C2-C3: Moderate facet arthropathy. Spinal canal and foramen are patent. C3-C4: Tiny central disc protrusion. Mild central canal stenosis. Moderate facet arthropathy. Mild RI GHT greater than LEFT bony foraminal narrowing. C4-C5: Slight anterolisthesis C4 on C5. Moderate facet arthropathy. Spinal canal and foramen are hanks nt. C5-C6: Disc osteophyte complex with endplate ridging. Slight indentation LEFT ventral cervical cord. Mild central canal stenosis. Mild LEFT greater than RIGHT bony foraminal narrowing. Moderate facet ar thropathy. C6-C7: Disc osteophyte complex with endplate ridging. Mild to moderate LEFT and mild RIGHT bony ganesh inal narrowing. Moderate facet arthropathy. Mild central canal stenosis. C7-T1: Slight anterolisthesis C7 on T1. Mild LEFT and no significant RIGHT foraminal narrowing. Mild facet arthropathy Lung apices are well aerated. CT/CT cervical spin wo con* [id number] IMPRESSION: 1. Straightening of the normal cervical lordosis. Moderate spondylitic changes . Disc space narrowing worse at C5-C6 and C6-C7. 2. Slight anterolisthesis C3 on C4 and C4 on C5. 3. Small central disc protrusion C3-C4 with slight contact of the cervical cor d and mild central canal stenosis. 4. Disc osteophyte complex with mild central canal stenosis C6-C7. 5. Mild to moderate bony foraminal narrowing worse at RIGHT C3-C4, LEFT C5-C6, LEFT C6-C7 6. Moderate to advanced facet arthropathy C3-C4 C4- C5 C5-C6 and C6-C7.
== END 2023-02-17 14:30 | disposition home or self-care (01) ==
PROVIDERS: PCP Family Medicine; Visit Provider Orthopaedic Surgery
DX: M48.02 Spinal stenosis, cervical region (principal); M47.812 Spondylosis without myelopathy or radiculopathy, cervical region; M50.21 Other cervical disc displacement, high cervical region; M25.78 Osteophyte, vertebrae; J45.50 Severe persistent asthma, uncomplicated; J30.1 Allergic rhinitis due to pollen
CPT/HCPCS: 72125; 99214

== ENCOUNTER → 2023-02-27 10:22 | Outpatient (BNVA) | payer MEDICARE, SELFPAY | PROVIDERS: PCP Family Medicine; Visit Provider Nurse Practitioner Family | DX: L57.0 Actinic keratosis (principal); L82.0 Inflamed seborrheic keratosis; L57.8 Other skin changes due to chronic exposure to nonionizing radiation; L85.3 Xerosis cutis; L82.1 Other seborrheic keratosis; D22.5 Melanocytic nevi of trunk; Z71.89 Other specified counseling | CPT/HCPCS: 17000; 17003; 17110; 99213 ==

== ENCOUNTER → 2023-05-01 08:17 | Outpatient (BNVA) | payer MEDICARE, SELFPAY | PROVIDERS: PCP Family Medicine; Visit Provider Family Medicine | DX: R53.83 Other fatigue (principal) | CPT/HCPCS: 82533 ==

== ENCOUNTER → 2023-05-26 10:42 | Outpatient (BNVA) | payer MEDICARE, SELFPAY | PROVIDERS: PCP Family Medicine; Visit Provider Family Medicine | DX: R35.0 Frequency of micturition (principal) | CPT/HCPCS: 81000 ==

== ENCOUNTER → 2023-06-23 09:57 | Outpatient (BNVA) | payer MEDICARE, SELFPAY | PROVIDERS: PCP Family Medicine; Visit Provider Nurse Practitioner Family | DX: L57.8 Other skin changes due to chronic exposure to nonionizing radiation (principal); L85.3 Xerosis cutis; L82.1 Other seborrheic keratosis; L81.4 Other melanin hyperpigmentation; D22.5 Melanocytic nevi of trunk; L82.0 Inflamed seborrheic keratosis; L57.0 Actinic keratosis | CPT/HCPCS: 17000; 17110; 99213 ==

== ENCOUNTER → 2023-07-07 15:03 | Outpatient (BNVA) | payer MEDICARE, SELFPAY | PROVIDERS: PCP Family Medicine; Visit Provider Family Medicine | DX: Z78.0 Asymptomatic menopausal state (principal); M25.50 Pain in unspecified joint; M79.10 Myalgia, unspecified site; R76.8 Other specified abnormal immunological findings in serum; E78.5 Hyperlipidemia, unspecified; E03.9 Hypothyroidism, unspecified; I10 Essential (primary) hypertension | CPT/HCPCS: 80053; 80061; 84443; 85651; 86038; 86140; 86431 ==

== ENCOUNTER → 2023-07-16 09:33 | Outpatient (BNVA) | payer MEDICARE, SELFPAY | PROVIDERS: PCP Family Medicine; Visit Provider Nurse Practitioner Family | DX: J02.9 Acute pharyngitis, unspecified (principal) | CPT/HCPCS: 87071; 87880 ==

== ENCOUNTER → 2023-08-15 08:05 | Outpatient (BNVA) | payer MEDICARE, SELFPAY | PROVIDERS: PCP Family Medicine; Visit Provider Internal Medicine Pulmonary Disease | DX: J45.50 Severe persistent asthma, uncomplicated (principal); J30.1 Allergic rhinitis due to pollen; J82.83 Eosinophilic asthma | CPT/HCPCS: 99214 ==

== ENCOUNTER → 2023-11-19 12:35 | Outpatient (BNVA) | payer MEDICARE, SELFPAY | PROVIDERS: PCP Family Medicine; Visit Provider Internal Medicine Rheumatology | DX: M17.0 Bilateral primary osteoarthritis of knee (principal); R76.8 Other specified abnormal immunological findings in serum; M25.50 Pain in unspecified joint | CPT/HCPCS: 99214 ==

== ENCOUNTER → 2023-11-24 10:49 | Outpatient (BNVA) | payer MEDICARE, SELFPAY | PROVIDERS: PCP Family Medicine; Visit Provider Nurse Practitioner Family | DX: L57.0 Actinic keratosis (principal); L57.8 Other skin changes due to chronic exposure to nonionizing radiation; L85.3 Xerosis cutis; L82.1 Other seborrheic keratosis; D18.01 Hemangioma of skin and subcutaneous tissue | CPT/HCPCS: 17110; 99213 ==

== ENCOUNTER → 2023-12-08 13:45 | Outpatient (BNVA) | payer MEDICARE, SELFPAY | PROVIDERS: PCP Family Medicine; Visit Provider Internal Medicine Pulmonary Disease | DX: J45.50 Severe persistent asthma, uncomplicated (principal); J30.1 Allergic rhinitis due to pollen; M19.90 Unspecified osteoarthritis, unspecified site | CPT/HCPCS: 99214 ==

== ENCOUNTER 2023-12-11 10:17 | Outpatient (CLI) | payer MEDICARE, SELFPAY ==
--- NOTE | 2023-12-11 10:30 | MM_ITS ---
WS: [id number] SCREENING DIGITAL BREAST TOMOSYNTHESIS MAMMOGRAM WITH CAD HISTORY: breast cancer screening COMPARISON: 06/17/2022 and 05/16/2020 Bilateral CC and MLO with tomosynthesis and synthetic mammography submitted. Computer aided detection analyzed. Breast composition: There are scattered areas of fibroglandular density. New ovoid mass measuring 7 x 6 mm 6:00 RIGHT breast, posterior depth. No additional interval change. Benign calcifications. IMPRESSION: MM/[place] [id number] BI-RADS: 0-Incomplete: Need additional imaging evaluation FOLLOW UP: Need Additional Imaging RIGHT breast: Spot compression views (CC and MLO). True ML. Ultrasound to follo w if abnormality persists.
== END 2023-12-11 10:18 | disposition home or self-care (01) ==
LOC: MOBLMAM 10:20
PROVIDERS: PCP Family Medicine; Visit Provider Family Medicine
DX: Z12.31 Encounter for screening mammogram for malignant neoplasm of breast; N63.15 Unspecified lump in the right breast, overlapping quadrants; R92.323 Mammographic fibroglandular density, bilateral breasts; R92.1 Mammographic calcification found on diagnostic imaging of breast
CPT/HCPCS: 77063; 77067

== ENCOUNTER 2023-12-16 09:00 | Outpatient (CLI) | payer MEDICARE, SELFPAY | END 2023-12-16 09:01 | LOC: LAB 02-25 09:59 | PROVIDERS: PCP Family Medicine; Visit Provider Family Medicine | DX: R39.9 Unspecified symptoms and signs involving the genitourinary system (principal) | CPT/HCPCS: 81000; 87086 ==

== ENCOUNTER → 2023-12-25 08:09 | Outpatient (BNVA) | payer MEDICARE, SELFPAY | PROVIDERS: PCP Family Medicine; Visit Provider Specialist | DX: R20.0 Anesthesia of skin (principal); M31.6 Other giant cell arteritis; H54.7 Unspecified visual loss; M26.69 Other specified disorders of temporomandibular joint; M79.7 Fibromyalgia | CPT/HCPCS: 36415; 85007; 85027; 85651; 99205 ==

== ENCOUNTER 2023-12-30 10:09 | Outpatient (CLI) | payer MEDICARE, SELFPAY ==
--- NOTE | 2023-12-30 10:30 | CTR_ITS ---
PROCEDURE INFORMATION: Exam: CT Chest Without Contrast; Diagnostic Exam date and time: 12/30/2023 10:31 AM Age: 68 years old Clinical indication: Condition or disease; Lung condition and disease; Asthma; Severity not specified; Additional info: Hrct, PT having pft's too-please let vern know when PT is done w/ct. Her ext. TECHNIQUE: Imaging protocol: Diagnostic computed tomography of the chest without contrast. Radiation optimization: All CT scans at this facility use at least one of these dose optimization techniques: automated exposure control; mA and/or kV adjustment per patient size (includes targeted exams where dose is matched to clinical indication); or iterative reconstruction. COMPARISON: CR XR chest 2V* [id number] 01/31/2021 10:57 AM RADIATION DOSE METRICS: Total DLP (mGy-cm): 1001.01 FINDINGS: Thyroid: No significant thyroid pathology. Lungs: Mild basilar scar versus atelectasis. Mild cylindrical bronchiectasis. Minimal pulmonary emphysema. 6 mm nodule at the lateral pleural surface of the right lower lobe on series 4, image 41. 4 mm left upper lobe nodule on series 4, image 32. Pleural spaces: No pleural effusion. Heart: Unremarkable. No cardiomegaly. No pericardial effusion. Coronary arteries: No coronary artery calcification evident. Esophagus: Mural thickening distal thoracic esophagus. Lymph nodes: No evidence of lymphadenopathy. Vasculature: No evidence of thoracic aortic aneurysm. Liver: Left hepatic lobe cyst measuring 4.7 cm. Bones/joints: Mild degenerative change present in the spine. Soft tissues: Unremarkable. CT/CT chest wo con [id number] IMPRESSION: 1. Mild cylindrical bronchiectasis. Mild bibasilar pulmonary scarring versus atelectasis. 2. Two pulmonary nodules measuring 6 and 4 mm respectively. Six-month follow-up recommended per Fleischner criteria. COMMENTS: The presence of pulmonary emphysema on CT is an independent risk factor for lung cancer. In the absence of a history or active diagnosis of lung cancer, it is recommended that this patient with emphysema be evaluated for enrollment in a low dose CT lung cancer screening program.
[2023-12-30 10:56] VITALS: PULSE 77; RESP 18; O2SAT 98
[2023-12-30] MEDS: albuterol 2.5 mg/3 mL Neb INHALATION (10:56)
[2023-12-30 11:00] VITALS: PULSE 74
== END 2023-12-30 10:10 | disposition home or self-care (01) ==
LOC: RAD 10:09
PROVIDERS: PCP Family Medicine; Visit Provider Internal Medicine Pulmonary Disease
DX: J84.9 Interstitial pulmonary disease, unspecified (principal); J47.9 Bronchiectasis, uncomplicated; R91.8 Other nonspecific abnormal finding of lung field
CPT/HCPCS: 71250; 94060; 94729; J7613

== ENCOUNTER 2024-01-06 09:26 | Outpatient (CLI) | payer MEDICARE, SELFPAY ==
--- NOTE | 2024-01-06 09:34 | MM_ITS ---
WS: [email or web address] ADDITIONAL VIEWS RIGHT MAMMOGRAM WITH DIGITAL BREAST TOMOSYNTHESIS. RIGHT BREAST ULTRASOUND HISTORY: New mass 6:00 RIGHT breast, posterior depth COMPARISON: 12/10/2013, 06/17/2022 RIGHT MAMMOGRAM: Spot compression views and true ML with digital breast tomosynthesis and SM. Ovoid mass persists measuring 9 mm in the inferior central RIGHT breast at a posterior depth. Maximum diameter of 9 mm. Ultrasound to follow. RIGHT BREAST ULTRASOUND 2-D and color Doppler imaging submitted. No abnormalities noted in the RIGHT breast in the area of concern. IMPRESSION: MM/[place] [id number] BI-RADS: 3-Probably Benign FOLLOW UP: 6 Month Follow-up 1. Ovoid nodule persists in the RIGHT breast near 5-6 o'clock. No ultrasound a bnormality identified. 2. Favor this is a benign asymmetry. Recommend diagnostic RIGHT mammogram foll ow-up in 6 months and possible ultrasound if the asymmetry persists.
== END 2024-01-06 09:27 | disposition home or self-care (01) ==
LOC: RAD 09:27
PROVIDERS: PCP Family Medicine; Visit Provider Family Medicine
DX: N63.10 Unspecified lump in the right breast, unspecified quadrant (principal); R92.8 Other abnormal and inconclusive findings on diagnostic imaging of breast
CPT/HCPCS: 76642; 77061; 81000; 87086; G0279

== ENCOUNTER → 2024-02-05 10:21 | Outpatient (BNVA) | payer MEDICARE, SELFPAY | PROVIDERS: PCP Family Medicine; Referring Provider Family Medicine; Visit Provider Orthopaedic Surgery | DX: M54.2 Cervicalgia (principal); M47.22 Other spondylosis with radiculopathy, cervical region | CPT/HCPCS: 72050; 99204 ==

== ENCOUNTER 2024-02-09 09:11 | Outpatient (CLI) | payer MEDICARE, SELFPAY ==
--- NOTE | 2024-02-09 09:17 | USCV_ITS ---
Magdalena East Age: 68 Gender: F : 1955 Exam Date: 02/09/2024 09:25 Ordering Phys: Uyen Garcia MD Technologist: THIEN Exam Location: [facility] Indication: Pain behind eye and head Risk Factors: Previous Vascular Surgery: Right Brachial BP: / Left Brachial BP: / Right Left Velocity (cm/s) Spectral Plaque Velocity (cm/s) Spectral Plaque Syst/Diast Broadening Syst/Diast Broadening 145.80/27.20 Prox CCA 129.20/ 14.90 122.10/23.50 Mid CCA 140.00/ 23.50 112.60/23.50 Distal CCA 103.30/ 21.40 60.30/ 17.10 Prox ICA 67.10 / 18.40 88.60/ 25.80 Mid ICA 85.70 / 26.20 62.60/ 19.60 Distal ICA 67.80 / 19.80 122.30 ECA 89.80 Antegrade Vertebral Antegrade 54.10/ 13.40 cm/s 48.70/ 14.00 cm/s Tri Subclavian Tri 147.2 185.3 0 0 CONCLUSIONS Intimal thickening in the common carotid arteries and internal carotid arteries bilaterally. Right ICA stenosis <50%. Mild atheromatous plaque right carotid bulb/ICA. Left ICA stenosis <50%. Mild atheromatous plaque left carotid bulb/ICA. Normal antegrade Doppler flow noted in the right vertebral artery. Normal antegrade Doppler flow noted in the left vertebral artery. Maynor Matt MD (Electronically Signed) Final Date: 09 Feb 2024 10:05 S
== END 2024-02-09 09:12 | disposition home or self-care (01) ==
LOC: RAD 09:11
PROVIDERS: PCP Family Medicine; Visit Provider Specialist
DX: M31.6 Other giant cell arteritis (principal); H54.7 Unspecified visual loss; I65.23 Occlusion and stenosis of bilateral carotid arteries
CPT/HCPCS: 93880

== ENCOUNTER → 2024-03-10 14:52 | Outpatient (BNVA) | payer MEDICARE, SELFPAY | PROVIDERS: PCP Family Medicine; Visit Provider Internal Medicine Pulmonary Disease | DX: J45.50 Severe persistent asthma, uncomplicated (principal); J30.1 Allergic rhinitis due to pollen; M19.90 Unspecified osteoarthritis, unspecified site; R91.8 Other nonspecific abnormal finding of lung field | CPT/HCPCS: 99214 ==

== ENCOUNTER → 2024-03-22 10:12 | Outpatient (BNVA) | payer MEDICARE, SELFPAY | PROVIDERS: PCP Family Medicine; Visit Provider Nurse Practitioner Family | DX: L57.0 Actinic keratosis (principal); L57.8 Other skin changes due to chronic exposure to nonionizing radiation; L85.3 Xerosis cutis; L82.1 Other seborrheic keratosis; L81.4 Other melanin hyperpigmentation; D22.5 Melanocytic nevi of trunk; D48.5 Neoplasm of uncertain behavior of skin | CPT/HCPCS: 99214 ==

== ENCOUNTER 2024-03-23 07:37 | Oncology outpatient (recurring) (ONCR) | payer MEDICARE, SELFPAY ==
--- NOTE | 2024-03-23 07:45 | US_ITS ---
WS: [email or web address] Exam: US abdomen limited [id number] Date/Time of Exam: 03/23/2024 8:35 AM Reason For Exam: r/o gallbladder disease A 3.4 x 3.3 x 2.2 cm cyst is seen in the LEFT lobe of the liver. The liver is otherwise unremarkable. The liver measures 14.8 cm in greatest dimension. No intrahepatic or extrahepatic biliary dilatation noted. The common bile duct measures 4 mm in greatest diameter. Hepatopetal flow noted in the portal vein. Unremarkable gallbladder.Normal-appearing RIGHT kidney measures 10.2 x 4.4 x 5.4 cm. The abdom inal aorta is normal in caliber. The IVC is patent. No mass or free fluid in the RIGHT abdomen. The p ancreas is mildly hyper echoic but no mass or enlargement noted. US/US abdomen limited [id number] IMPRESSION: 1. 3.4 cm cyst in the LEFT lobe of the liver. The liver is otherwise normal in appearance. 2. No other significant finding in the RIGHT abdomen.
== END 2024-03-28 23:59 | disposition home or self-care (01) ==
LOC: RAD 07:42 → ONCMED 04-13 07:26
PROVIDERS: PCP Family Medicine; Visit Provider Family Medicine
DX: R10.11 Right upper quadrant pain (principal); R11.0 Nausea; K76.89 Other specified diseases of liver; Z53.9 Procedure and treatment not carried out, unspecified reason
CPT/HCPCS: 76705

== ENCOUNTER → 2024-03-31 14:09 | Outpatient (BNVA) | payer MEDICARE, SELFPAY | PROVIDERS: PCP Family Medicine; Visit Provider Internal Medicine Rheumatology | DX: M17.0 Bilateral primary osteoarthritis of knee (principal); R76.8 Other specified abnormal immunological findings in serum; M25.50 Pain in unspecified joint; R53.83 Other fatigue | CPT/HCPCS: 36415; 80076; 82565; 84439; 84443; 85025; 85651; 86140; 99214 ==

== ENCOUNTER → 2024-05-19 10:54 | Outpatient (BNVA) | payer MEDICARE, SELFPAY | PROVIDERS: PCP Family Medicine; Visit Provider Dermatology | DX: D48.5 Neoplasm of uncertain behavior of skin (principal); L57.0 Actinic keratosis; L82.1 Other seborrheic keratosis; L81.4 Other melanin hyperpigmentation | CPT/HCPCS: 11102; 17000; 99213 ==

== ENCOUNTER → 2024-06-14 12:43 | Outpatient (BNVA) | payer MEDICARE, SELFPAY | PROVIDERS: PCP Family Medicine; Visit Provider Internal Medicine Critical Care Medicine | DX: J45.50 Severe persistent asthma, uncomplicated (principal); J40 Bronchitis, not specified as acute or chronic; K21.9 Gastro-esophageal reflux disease without esophagitis; J38.3 Other diseases of vocal cords; J47.9 Bronchiectasis, uncomplicated; R91.8 Other nonspecific abnormal finding of lung field; E66.3 Overweight; Z68.27 Body mass index [BMI] 27.0-27.9, adult; Z71.3 Dietary counseling and surveillance; Z71.82 Exercise counseling; Z71.89 Other specified counseling | CPT/HCPCS: 99214 ==

== ENCOUNTER → 2024-06-30 12:46 | Outpatient (BNVA) | payer MEDICARE, SELFPAY | PROVIDERS: PCP Family Medicine; Visit Provider Family Medicine | DX: N89.8 Other specified noninflammatory disorders of vagina (principal) | CPT/HCPCS: 81513; 87070; 87205; 87481; 87491; 87591; 87661 ==

== ENCOUNTER 2024-07-12 10:02 | Outpatient (CLI) | payer MEDICARE, SELFPAY ==
--- NOTE | 2024-07-12 10:13 | US_ITS ---
WS: [id number] ULTRASOUND RIGHT BREAST HISTORY: 6 MO F/U COMPARISON: 01/06/2024, 12/11/2023 and 06/17/2022 TECHNIQUE: 2-D and Doppler. Patient refused mammogram. Very dense fibroglandular tissue noted along the 6:00 axis. There is shadowing and a few scattered hy poechoic areas which may be normal breast tissue. US/US breast RT limited* [id number] IMPRESSION: BI-RADS: 0 - Incomplete: Need additional imaging evaluation. FOLLOW-UP: Need Additional Imaging 1. Patient refused diagnostic mammographic evaluation. 2. The asymmetry noted on the prior mammogram was new since 2021. This was bes t seen on the mammogram and should be reevaluated by mammography. Without havin g the mammogram for comparison to ensure no interval change this is an incomple te evaluation. Prominent fibroglandular tissue by ultrasound. Mammogram and ult rasound are used in conjunction with the each other to exclude an underlying ab normality.
== END 2024-07-12 10:03 | disposition home or self-care (01) ==
LOC: RAD 10:03
PROVIDERS: PCP Family Medicine; Visit Provider Family Medicine
DX: Z12.39 Encounter for other screening for malignant neoplasm of breast (principal)
CPT/HCPCS: 76642

== ENCOUNTER 2024-08-06 19:46 | Emergency (ER) | payer MEDICARE, SELFPAY ==
[2024-08-06 19:58] VITALS: BP 135/80; PULSE 77; RESP 15; TEMP 36.7; O2SAT 97; BMI 27.4
--- NOTE | 2024-08-06 20:35 | CTR_ITS ---
PROCEDURE INFORMATION: Exam: CT Head Without Contrast Exam date and time: 08/06/2024 8:58 PM Age: 68 years old Clinical indication: Visual disturbance; Patient HX: C/O RT ocular pain with blurred vision; Additional info: RT sided vision changes TECHNIQUE: Imaging protocol: Computed tomography of the head without contrast. Radiation optimization: All CT scans at this facility use at least one of these dose optimization techniques: automated exposure control; mA and/or kV adjustment per patient size (includes targeted exams where dose is matched to clinical indication); or iterative reconstruction. COMPARISON: MR head wo con* [id number] 11/04/2022 2:18 PM RADIATION DOSE METRICS: Total DLP (mGy-cm): 987.68 FINDINGS: Brain: Normal. No hemorrhage. Unremarkable white matter. No mass effect. Cerebral ventricles: No ventriculomegaly. Paranasal sinuses: Visualized sinuses are unremarkable. No fluid levels. Mastoid air cells: Visualized mastoid air cells are well aerated. Bones: Unremarkable. No acute fracture. Soft tissues: Unremarkable. CT/CT head wo con* [id number] IMPRESSION: No acute intracranial abnormality.
--- NOTE | 2024-08-06 20:46 | ED_ITS ---
HPI - Eye Problem General: Chief complaint: Eye Problems Stated complaint: EYE PROBLEM Time Seen by Provider: 08/06/24 20:30 History of Present Illness: 68-year-old female with history of fibro myalgia, asthma who presents to the emergency room with right eye issues. Says earlier today she had some pressure behind her eye. She then had a bunch of floaters. She also had an episode where she saw bright lights. She talked to ophthalmology and they told her to come to the emergency room for initial evaluation. She says her vision might be a little bit blurry. She never had migraines before. Basic exam of right eye appears normal. No focal motor deficits. No slurred speech. No facial droop. No motor deficits. No fevers. No chest pain. No shortness of breath. No abdominal pain. No nausea or vomiting. Related Data Previous Rx's Medication Instructions Recorded albuterol sulfate 2.5 mg/3 mL 2.5 mg (3 mL) inhalation Q4H PRN 10/04/21 (0.083 %) solution for nebulization shortness of breath or wheezing #180 mL epinephrine 0.3 mg/0.3 mL 0.3 mg (0.3 mL) IM Q15M PRN 06/13/22 injection, auto-injector (EpiPen anaphylaxis 3 doses #2 ea 2-Reji) medroxyprogesterone 2.5 mg tablet 2.5 mg PO DAILY 90 days #90 tabs 06/13/22 montelukast 10 mg tablet 10 mg PO DAILY 90 days #90 tabs 08/15/23 (Singulair) estradiol 0.5 mg tablet See Rx Instructions .Route 12/08/23 .COMPLEX #90 tabs amitriptyline 25 mg tablet 25 mg PO DAILY #30 tabs 12/25/23 nystatin 100,000 unit/mL oral 5 ml buccal TID #200 mL 01/01/24 suspension levothyroxine 75 mcg tablet See Rx Instructions .Route 03/08/24 .COMPLEX #90 tabs hydroxychloroquine 200 mg tablet 200 mg PO BID #180 tabs 03/31/24 fluticasone propionate 50 1 spray intranasal Q12H PRN 05/26/24 mcg/actuation nasal allergy symptoms #48 grams spray,suspension albuterol sulfate 90 mcg/actuation 2 inh inhalation Q6H PRN 06/03/24 aerosol inhaler bronchospasm #25.5 grams tizanidine 4 mg tablet See Rx Instructions .Route 06/04/24 .COMPLEX #270 tabs omeprazole 20 mg capsule,delayed See Rx Instructions .Route 06/22/24 release .COMPLEX #90 caps metronidazole 500 mg tablet 500 mg PO BID #14 tabs 07/02/24 fluconazole 150 mg tablet 150 mg PO Q7D 4 doses #4 tabs 07/26/24 fluticasone propionate 230 2 puff inhalation Q12H 30 days #12 07/26/24 mcg-salmeterol 21 mcg/actuation grams HFA inhaler (Advair HFA) nystatin 100,000 unit/mL oral 100,000 unit PO DAILY #200 mL 07/26/24 suspension acyclovir 400 mg tablet See Rx Instructions .Route 07/27/24 .COMPLEX #90 tabs Allergies Allergy/AdvReac Type Severity Reaction Status Date / Time melon Allergy Severe ALGY-Anaphy Verified 07/26/24 14:16 laxis nut - unspecified Allergy Severe ALGY-Anaphy Verified 07/26/24 14:16 laxis erythromycin base Allergy Mild hives Verified 07/26/24 14:16 iodine Allergy ALGY-Rash Verified 07/26/24 14:16 latex Allergy ADR-Dizzine Verified 07/26/24 14:16 ss Sulfa (Sulfonamide Allergy Unknown Verified 07/26/24 14:16 Antibiotics) tiotropium Allergy urinary Verified 07/27/24 14:28 [From Spiriva with retention HandiHaler] Review of Systems Narrative: Constitutional symptoms: Negative except as documented in HPI. Skin symptoms: Negative except as documented in HPI. Eye symptoms: Negative except as documented in HPI. ENMT symptoms: Negative except as documented in HPI. Respiratory symptoms: Negative except as documented in HPI. Cardiovascular symptoms: Negative except as documented in HPI. Gastrointestinal symptoms: Negative except as documented in HPI. Genitourinary symptoms: Negative except as documented in HPI. Musculoskeletal symptoms: Negative except as documented in HPI. Neurologic symptoms: Negative except as documented in HPI. Psychiatric symptoms: Negative except as documented in HPI. Endocrine symptoms: Negative except as documented in HPI. PFSH ED PFSH: Medical History Polyarthralgia Positive JACK (antinuclear antibody) Fibromyalgia Severe persistent asthma Lumbar back pain with radiculopathy affecting right lower extremity Fatigue COVID-19 resolved Osteoarthritis of knees, bilateral 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 History of 2019 novel coronavirus disease (COVID-19) HTN (hypertension) Fibromyalgia Seborrheic keratosis Postmenopausal Asthma Hypothyroidism Genital herpes in women GERD (gastroesophageal reflux disease) History of colon polyps (~2013) Surgical History History of cataract extraction with lens replacement bilateral History of colonoscopy (~2013) History of laparoscopic appendectomy History of tubal ligation Status post tonsillectomy History of appendectomy H/O vaginal surgery Family History Mother Stroke Family/Other Hyperlipidemia CAD (coronary artery disease) Hypertension Other Atrial fibrillation Social History Smoking and tobacco/nicotine status: never used tobacco/nicotine Second hand smoke exposure: No Alcohol intake: never Substance/Drug Use: never Lives independently: Yes Household members: spouse Marital status: Number of children: 2 Number of grandchildren: 4 Current occupational status: employed Do you think of yourself as: Straight/Heterosexual Current gender identity: Female Marisabel/Holiness: [employer] Female Reproductive History: Para: 4 Physical Exam Narrative: EXAM NARRATIVE: General: Alert, no acute distress. Skin: warm and dry Head: Normocephalic Neck: Trachea midline Eye: Extraocular movements are intact. Pupils are equal and reactive. Exam with light shows no retinal detachment obvious. Vision is grossly normal. Ears, nose, mouth and throat: Oral mucosa moist Respiratory: Respirations are non-labored Musculoskeletal: Normal ROM Neurological: Alert and oriented, No focal neurological deficit observed. Psychiatric: Cooperative, appropriate mood & affect. Course Vital Signs: Vital signs: Vital Signs Temperature 98.1 F 08/06/24 19:58 Pulse Rate 77 08/06/24 19:58 Respiratory Rate 15 08/06/24 19:58 Blood Pressure 135/80 08/06/24 19:58 Pulse Oximetry 97 08/06/24 19:58 Oxygen Delivery Me thod Room Air 08/06/24 19:58 MDM - Eye Problem Medical Decision Making CT head: No acute intracranial process. no intracranial hemorrhage, no evidence of infarct. no evidence of acute fracture.This was reviewed and interpreted by myself the ER physician. Reexamination: No acute changes while in the emergency room. Vision is grossly normal. Assessment and plan: Vision changes - Discharged home - Discussed plan with patient. Answered any questions. - Evaluation and treatment of this problem were appropriate in the emergency setting. Lab Data Radiology Impressions Head CT 08/06/24 20:35 IMPRESSION: No acute intracranial abnormality. All radiology interpretation(s) finalized by discharge Discharge Plan Discharge Patient Disposition: Home Clinical Impression: Vision changes Condition: Stable Prescriptions: No Action albuterol sulfate 2.5 mg /3 mL (0.083 %) solution for nebulization 2.5 mg inhalation Q4H PRN (Reason: shortness of breath or wheezing) Qty: 180 5RF montelukast [Singulair] 10 mg tablet 10 mg PO DAILY 90 Days Qty: 90 3RF amitriptyline 25 mg tablet 25 mg PO DAILY Qty: 30 3RF Rx Instructions: Take at bedtime hydroxychloroquine 200 mg tablet 200 mg PO BID Qty: 180 1RF metronidazole 500 mg tablet 500 mg PO BID Qty: 14 0RF fluconazole 150 mg tablet 150 mg PO Q7D Qty: 4 0RF Advair HFA 230-21 mcg/actuation HFA aerosol inhaler 2 puff inhalation Q12H 30 Days Qty: 12 4RF Rx Instructions: administer with spacer nystatin 100,000 unit/mL suspension 100,000 unit PO DAILY Qty: 200 2RF Rx Instructions: administer 1/2 of dose in each side of the mouth epinephrine [EpiPen 2-Reji] 0.3 mg/0.3 mL auto-injector 0.3 mg IM Q15M PRN (Reason: anaphylaxis) Qty: 2 0RF Rx Instructions: until response medroxyprogesterone 2.5 mg tablet 2.5 mg PO DAILY 90 Days Qty: 90 0RF estradiol 0.5 mg tablet See Rx Instructions .ROUTE .COMPLEX Qty: 90 0RF Dose Instruction: TAKE 1 TABLET BY MOUTH DAILY Rx Instructions: TAKE 1 TABLET BY MOUTH DAILY nystatin 100,000 unit/mL suspension 5 ml buccal TID Qty: 200 3RF Rx Instructions: swish and swallow levothyroxine 75 mcg tablet See Rx Instructions .ROUTE .COMPLEX Qty: 90 0RF Dose Instruction: TAKE 1 TABLET BY MOUTH DAILY Rx Instructions: TAKE 1 TABLET BY MOUTH DAILY fluticasone propionate 50 mcg/actuation spray,suspension 1 spray intranasal Q12H PRN (Reason: allergy symptoms) Qty: 48 3RF albuterol sulfate 90 mcg/actuation HFA aerosol inhaler 2 inh inhalation Q6H PRN (Reason: bronchospasm) Qty: 25.5 3RF tizanidine 4 mg tablet See Rx Instructions .ROUTE .COMPLEX Qty: 270 0RF Dose Instruction: TAKE 1 TABLET BY MOUTH EVERY 8 HOURS NEEDED FOR MUSCLE SPASMS Rx Instructions: TAKE 1 TABLET BY MOUTH EVERY 8 HOURS NEEDED FOR MUSCLE SPASMS omeprazole 20 mg capsule,delayed release(DR/EC) See Rx Instructions .ROUTE .COMPLEX Qty: 90 0RF Dose Instruction: TAKE 1 CAPSULE BY MOUTH EVERY DAY Rx Instructions: TAKE 1 CAPSULE BY MOUTH EVERY DAY acyclovir 400 mg tablet See Rx Instructions .ROUTE .COMPLEX Qty: 90 0RF Dose Instruction: TAKE 1 TABLET BY MOUTH DAILY Rx Instructions: TAKE 1 TABLET BY MOUTH DAILY Discharge Orders: Discharge ED (Routine); Ordered 08/06/24 Ordered By: Marlin Gaming Referrals: Taran Brady [Physician] - 1-3 days (Please call for follow-up) Teodora Tsang MD [Primary Care Provider] - Discharge Diet: Usual diet Discharge Activity: Resume usual activity Patient Instructions: Opioid Safety, Pain Management Activity Restrictions/Additional Instructions: Thank you for choosing [facility] for your healthcare needs today. Please realize this is an emergency room and that we are providing you with a medical screening exam and this may not be complete and all inclusive of all the testing and or work up that you may need to determine your ailment or severity of your illness. You have been screened and evaluated and felt safe for discharge. Health conditions do change or evolve sometimes and as such it is important that you follow up with your Primary Doctor to be re checked, 3-5 days is a general good time frame for follow up. You are always welcome to return to the ED for re assessment if your symptoms are worsening or you have new concerns Coding Level of Care Code ED Interactive Video Technician for Teagan Whitman
[2024-08-06 21:45] VITALS: BP 131/57; PULSE 71; RESP 16; O2SAT 99
== END 2024-08-06 21:47 | disposition home or self-care (01) ==
PROVIDERS: Emergency Provider Emergency Medicine; PCP Family Medicine
DX: H53.9 Unspecified visual disturbance (principal); I10 Essential (primary) hypertension
CPT/HCPCS: 70450; 99284

== ENCOUNTER 2024-08-23 08:34 | Outpatient (CLI) | payer MEDICARE, SELFPAY ==
--- NOTE | 2024-08-23 08:41 | MM_ITS ---
WS: [email or web address] ADDITIONAL VIEWS RIGHT MAMMOGRAM WITH DIGITAL BREAST TOMOSYNTHESIS. RIGHT BREAST ULTRASOUND HISTORY: 6 MO F/U ABNORMAL MAMMO COMPARISON: 07/12/2024, 01/06/2024, 12/11/2023 and 06/17/2022 RIGHT MAMMOGRAM: Spot compression views and true ML with digital breast tomosynthesis and SM. Breast composition: The breasts are heterogeneously dense, which may obscure small masses. Scattered dense asymmetries persist throughout the breast. Ovoid nodule is identified just medial to the RIGHT nipple and in the lower portion of the breast, 5-6 o'clock. Nodule measures 5 x 8 mm and nobles s not increased in size since 12/11/2023 but is new since 06/17/2022. RIGHT BREAST ULTRASOUND 2-D and color Doppler imaging submitted. Breast is heterogeneously dense background echotexture. The ovoid mass noted near probable 6:00 in th e posterior breast is not definitely identified by ultrasound. Very dense heterogeneous echotexture a round the nipple. There are some dilated ducts. The changes at the nipple are probably just simply di lated ducts. The location does not correspond to the mammographic abnormality. MM/MM diag RT tomosynthesis [id number] IMPRESSION: BI-RADS: 3 - Probably Benign FOLLOW UP: 6 Month Follow-up 1. Recommend 6-month mammogram follow-up of the RIGHT breast mass. Mass is new since 06/17/2022. Not significantly changed in size since 12/11/2023. Mass is no t identified by ultrasound. There are a few dilated ducts with echogenic cuevas towards the nipple but this location does not correspond to the mammographic lo cation. 2. Alternatively, stereotactic biopsy could be performed. Biopsy not possible by ultrasound as it is not definitely identified. 3. I did explain this in detail to the patient at the time of the examination. If there are further questions please feel free to contact me.
--- NOTE | 2024-08-23 09:18 | US_ITS ---
WS: [id number] ADDITIONAL VIEWS RIGHT MAMMOGRAM WITH DIGITAL BREAST TOMOSYNTHESIS. RIGHT BREAST ULTRASOUND HISTORY: 6 MO F/U ABNORMAL MAMMO COMPARISON: 07/12/2024, 01/06/2024, 12/11/2023 and 06/17/2022 RIGHT MAMMOGRAM: Spot compression views and true ML with digital breast tomosynthesis and SM. Breast composition: The breasts are heterogeneously dense, which may obscure small masses. Scattered dense asymmetries persist throughout the breast. Ovoid nodule is identified just medial to the RIGHT nipple and in the lower portion of the breast, 5-6 o'clock. Nodule measures 5 x 8 mm and nobles s not increased in size since 12/11/2023 but is new since 06/17/2022. RIGHT BREAST ULTRASOUND 2-D and color Doppler imaging submitted. Breast is heterogeneously dense background echotexture. The ovoid mass noted near probable 6:00 in th e posterior breast is not definitely identified by ultrasound. Very dense heterogeneous echotexture a round the nipple. There are some dilated ducts. The changes at the nipple are probably just simply di lated ducts. The location does not correspond to the mammographic abnormality. US/US breast RT limited* [id number] IMPRESSION: BI-RADS: 3 - Probably Benign FOLLOW UP: 6 Month Follow-up 1. Recommend 6-month mammogram follow-up of the RIGHT breast mass. Mass is new since 06/17/2022. Not significantly changed in size since 12/11/2023. Mass is no t identified by ultrasound. There are a few dilated ducts with echogenic cuevas towards the nipple but this location does not correspond to the mammographic lo cation. 2. Alternatively, stereotactic biopsy could be performed. Biopsy not possible by ultrasound as it is not definitely identified. 3. I did explain this in detail to the patient at the time of the examination. If there are further questions please feel free to contact me.
== END 2024-08-23 08:35 | disposition home or self-care (01) ==
LOC: RAD 08:35
PROVIDERS: PCP Family Medicine; Visit Provider Family Medicine
DX: R92.8 Other abnormal and inconclusive findings on diagnostic imaging of breast (principal); R92.333 Mammographic heterogeneous density, bilateral breasts; N63.11 Unspecified lump in the right breast, upper outer quadrant
CPT/HCPCS: 76642; 77061; G0279

== ENCOUNTER → 2024-09-02 10:08 | Outpatient (BNVA) | payer MEDICARE, SELFPAY | PROVIDERS: PCP Family Medicine; Visit Provider Internal Medicine Rheumatology | DX: M17.0 Bilateral primary osteoarthritis of knee; R76.8 Other specified abnormal immunological findings in serum | CPT/HCPCS: 99214 ==

== ENCOUNTER 2024-09-06 14:06 | Outpatient (CLI) | payer MEDICARE, SELFPAY ==
[2024-09-06 14:49] LABS: Basophils # 0.1 10^3/uL (0.0-0.1); Basophils % 0.8 %; Eosinophils # 0.1 10^3/uL (0.0-0.8); Eosinophils % 1.8 %; Hematocrit 39.4 % (36-47); Lymphocytes % 25.2 %; Mean Corpuscular Hemoglobin 31.8 pg (27-33); Mean Corpuscular Volume 93.4 fl (85-98); Mean Platelet Volume 10.6 fL (7.4-10.4); Monocytes # 0.7 10^3/uL (0.2-0.9); Monocytes % 8.8 %; Neutrophils # 4.98 10^3/uL (1.8-7.7); Neutrophils % 63.1 %; Nucleated Red Blood Cells % 0 %; Platelet Count 207 10^3/cmm (157-399); Red Blood Count 4.22 10^6/uL (3.85-5.65); Red Cell Distribution Width 11.3 % (12.1-15.1); White Blood Count 7.87 10^3/uL (3.29-11.43)
[2024-09-06 15:00] LABS: Alanine Aminotransferase 14 U/L (0-33); Alkaline Phosphatase 52 U/L (35-105); Aspartate Amino Transferase 16 U/L (0-32); Globulin 2.8 g/dL (1.3-4.6); Total Bilirubin 0.3 mg/dL (0.15-1.2); Total Protein 6.8 g/dL (6.6-8.7)
[2024-09-06 15:19] LABS: Erythrocyte Sedimentation Rate 5 mm/hr (0-15)
== END 2024-09-06 14:07 | disposition home or self-care (01) ==
LOC: LAB 14:08
PROVIDERS: PCP Family Medicine; Visit Provider Internal Medicine Rheumatology
DX: M25.50 Pain in unspecified joint (principal)
CPT/HCPCS: 36415; 80076; 82565; 85025; 85651; 86140

== ENCOUNTER → 2024-09-08 09:10 | Outpatient (BNVA) | payer MEDICARE, SELFPAY | PROVIDERS: PCP Family Medicine; Visit Provider Family Medicine | DX: I10 Essential (primary) hypertension (principal); E78.5 Hyperlipidemia, unspecified; E03.9 Hypothyroidism, unspecified | CPT/HCPCS: 80048; 80061; 84443 ==

== ENCOUNTER 2025-01-13 12:07 | Oncology outpatient (recurring) (ONCR) | payer MEDICARE, SELFPAY ==
--- NOTE | 2025-01-13 12:16 | USCV_ITS ---
Magdalena East Age: 69 Gender: F : 1955 Exam Date: 01/13/2025 12:24 Ordering Phys: Teodora Tsang MD Technologist: THIEN Exam Location: [facility] – [place] Indication: Diastolic Dysfunction BP: 128 / 76 HR: 72 Rhythm: Sinus Technical Quality: Adequate MEASUREMENTS (Male / Female) Normal Values 2D ECHO LV Diastolic Diameter PLAX 4.6 cm 4.2 - 5.9 / 3.9 - 5.3 cm IVS Diastolic Thickness 0.9 cm 0.6 - 1.0 / 0.6 - 0.9 cm IVS Systolic Thickness 1.8 cm LVPW Diastolic Thickness 0.7 cm 0.6 - 1.0 / 0.6 - 0.9 cm LVPW Systolic Thickness 1.4 cm LVOT Diameter 2.0 cm LV Ejection Fraction 2D Teich 61.0 % LV Ejection Fraction MOD 4C 70.0 % LV Ejection Fraction MOD 2C 65.1 % LV Ejection Fraction 2C AL 66.2 % LA Diameter 3.9 cm RA Systolic Volume 4C AL 18.4 ml RA Systolic Volume 4C MOD 18.7 ml LA Sys Volume AL 41.8 cm cubed LA Sys Volume Index AL 22.6 cm cubed/m squared Aorta at Sinotubular Diameter 2.7 cm IVC Diameter 1.8 cm M-MODE LA Ao Ratio MM 1.8 AV Cusp Separation MM 1.1 cm DOPPLER AV Peak Velocity 157.0 cm/s LVOT Peak Velocity 117.0 cm/s AV Area Cont Eq vti 2.9 cm squared AV Area Cont Eq pk 2.2 cm squared MV Peak Velocity 136.0 cm/s MV Area PHT 3.1 cm squared Mitral E to A Ratio 0.5 TR Peak Velocity 140.0 cm/s TR Peak Gradient 7.8 mmHg TV Peak E Velocity 75.0 cm/s PV Peak Velocity 72.0 cm/s FINDINGS Left Ventricle Normal left ventricular size and systolic function, EF66% . No regional wall motion abnormalities. Grade I/IV diastolic dysfunction (abnormal relaxation filling pattern), normal to mildly elevated filling pressures. Right Ventricle The right ventricle is normal in size and function. Right Atrium The right atrium is normal in size. Left Atrium The left atrium is normal in size. Mitral Valve Thickened mitral valve. Aortic Valve Thickened aortic valve. Tricuspid Valve No gross abnormalities noted Pulmonic Valve Pulmonic valve not well visualized. Pericardium Normal pericardium without effusion. Aorta Normal ascending aorta dimension. IVC Normal inferior vena cava. CONCLUSIONS Normal left ventricular size and systolic function, EF66% . No regional wall motion abnormalities. Grade I/IV diastolic dysfunction (abnormal relaxation filling pattern), normal to mildly elevated filling pressures. Thickened aortic and mitral valves There is no pericardial effusion. There are no intracardiac masses. Compared to the study from 05/04/2020, there maynot be a significant change Dr Nirav Iverson MD [facility] (Electronically Signed) Final Date: 18 January 2025 20:03 S
== END 2025-01-26 23:59 | disposition home or self-care (01) ==
LOC: ONCMED 12:10 → RAD 12:57 → ONCMED 01-14 10:40
PROVIDERS: PCP Family Medicine; Visit Provider Family Medicine
DX: I51.89 Other ill-defined heart diseases (principal); I50.30 Unspecified diastolic (congestive) heart failure; I35.8 Other nonrheumatic aortic valve disorders
CPT/HCPCS: 93306

== ENCOUNTER → 2025-01-19 14:56 | Outpatient (BNVA) | payer MEDICARE, SELFPAY | PROVIDERS: PCP Family Medicine; Visit Provider Family Medicine | DX: L50.9 Urticaria, unspecified (principal); I10 Essential (primary) hypertension; E78.5 Hyperlipidemia, unspecified; E03.9 Hypothyroidism, unspecified; R53.83 Other fatigue; Z79.899 Other long term (current) drug therapy | CPT/HCPCS: 80053; 80061; 83520; 84443; 85025 ==

== ENCOUNTER → 2025-02-28 09:42 | Outpatient (BNVA) | payer MEDICARE, SELFPAY | PROVIDERS: PCP Family Medicine; Visit Provider Internal Medicine Rheumatology | DX: M17.0 Bilateral primary osteoarthritis of knee (principal); R76.8 Other specified abnormal immunological findings in serum; M25.50 Pain in unspecified joint; R21 Rash and other nonspecific skin eruption; W57.XXXA Bitten or stung by nonvenomous insect and other nonvenomous arthropods, initial encounter; X58.XXXA Exposure to other specified factors, initial encounter | CPT/HCPCS: 36415; 82784; 86003; 86008; 99214 ==

== ENCOUNTER → 2025-05-09 13:47 | Outpatient (BNVA) | payer MEDICARE, SELFPAY | PROVIDERS: PCP Family Medicine; Visit Provider Nurse Practitioner Family | DX: L50.1 Idiopathic urticaria (principal); L82.1 Other seborrheic keratosis; L85.3 Xerosis cutis; D22.4 Melanocytic nevi of scalp and neck; L81.4 Other melanin hyperpigmentation; L57.8 Other skin changes due to chronic exposure to nonionizing radiation; L82.0 Inflamed seborrheic keratosis; L53.8 Other specified erythematous conditions; Z78.9 Other specified health status; R20.8 Other disturbances of skin sensation; L29.89 Other pruritus; L57.0 Actinic keratosis | CPT/HCPCS: 17000; 17110; 99213 ==

== ENCOUNTER → 2025-05-25 12:09 | Outpatient (BNVA) | payer MEDICARE, SELFPAY | PROVIDERS: PCP Family Medicine; Visit Provider Family Medicine | DX: R39.9 Unspecified symptoms and signs involving the genitourinary system (principal) | CPT/HCPCS: 81000 ==

== ENCOUNTER → 2025-06-30 09:29 | Outpatient (BNVA) | payer MEDICARE, SELFPAY | PROVIDERS: PCP Family Medicine; Visit Provider Internal Medicine Rheumatology | DX: M13.0 Polyarthritis, unspecified (principal); M06.00 Rheumatoid arthritis without rheumatoid factor, unspecified site; M50.30 Other cervical disc degeneration, unspecified cervical region | CPT/HCPCS: 99214 ==

== ENCOUNTER 2025-07-08 12:49 | Outpatient (CLI) | payer MEDICARE, SELFPAY ==
[2025-07-08 13:41] LABS: Hematocrit 38.4 % (36-47); Hemoglobin 13.60 g/dL (11.27-16.99); Mean Corpuscular HGB Conc 35.4 g/dL (30-55); Mean Corpuscular Hemoglobin 32.3 pg (27-33); Mean Corpuscular Volume 91.2 fl (85-98); Nucleated Red Blood Cells % 0 %; Platelet Count 244 10^3/cmm (157-399); Red Blood Count 4.21 10^6/uL (3.85-5.65); White Blood Count 7.09 10^3/uL (3.29-11.43)
[2025-07-08 13:59] LABS: Blood Urea Nitrogen 10 mg/dL (8-23); Calcium 8.6 mg/dL (8.5-10.5); Carbon Dioxide 25 mmol/L (22-29); Chloride 100 mmol/L (98-107); Glucose 87 mg/dL (65-115); Osmolality Calculated 282 mOsm/kg (285-295); Sodium 137 mmol/L (136-145)
[2025-07-08 14:00] LABS: Alanine Aminotransferase 14 U/L (0-33); Albumin Level 4.0 g/dL (3.5-5.2); Alkaline Phosphatase 61 U/L (35-105); Aspartate Amino Transferase 16 U/L (0-32); Globulin 2.5 g/dL (1.3-4.6); Total Protein 6.5 g/dL (6.6-8.7)
[2025-07-08 14:13] LABS: Anion Gap 16.0 (5-19); Potassium 4.0 mmol/L (3.5-5.1)
== END 2025-07-08 12:50 | disposition home or self-care (01) ==
LOC: LAB 12:52
PROVIDERS: Family Provider Student in an Organized Health Care Education/Training Program; PCP Family Medicine; Visit Provider Internal Medicine Rheumatology
DX: Z79.899 Other long term (current) drug therapy (principal); R30.0 Dysuria
CPT/HCPCS: 36415; 80048; 80076; 82565; 85025; 85651; 86140